=== PATIENT | male | born 1955 | race Hispanic/Latino ===

== ENCOUNTER 2019-01-02 23:56 | Emergency (ER) | payer OTHER ==
[~2019-01-02] VITALS: Ht 165.1 cm; Wt 61.2 kg
--- NOTE | 2019-01-03 | NUR ---
PT INCONTINENT OF URINE PRIOR TO ARRIVAL, PANTS WET WITH URINE FROM GROIN TO FEET. DISROBED AND CHANGED TO GOWN ON ARRIVAL
[2019-01-03] MEDS ORDERED: LORAZEPAM INJ 2 MG/ML VIAL ONE (00:08)
[2019-01-03] MEDS ORDERED: SODIUM CHLORIDE 0.9% 1000ML 1,000 ML ONE (00:09)
[2019-01-03] MEDS ORDERED: MULTIVITAMINS INJECTION ONE (00:12)
[2019-01-03] MEDS ORDERED: THIAMINE HCL INJ 100 MG/ML 2ML VIAL ONE (00:12)
[2019-01-03] MEDS ORDERED: FOLIC ACID 5 MG/ML VIAL ONE (00:12)
[2019-01-03] MEDS ORDERED: MULTIVITAMINS- 12 INJECTION 10 ML, FOLIC ACID MDV 1 MG, THIAMINE HCL INJ 100 MG in SODI... IV STA (00:20)
[2019-01-03 00:21] LABS: BASOPHILS % 0.2 % (0.0-1.0); EOSINOPHILS # (AUTO) 0.1 (0.0-0.4); EOSINOPHILS % 1.9 % (0.0-6.0); HEMATOCRIT 39.5 % (38.2-49.6); LYMPHOCYTES % 15.7 % (18.0-39.1); MEAN CORPUSCULAR HEMOGLOBIN 33.6 pg (28-32); MEAN CORPUSCULAR HGB CONC 35.4 g/dL (31-35); MEAN CORPUSCULAR VOLUME 94.7 fL (81-99); MONOCYTES # (AUTO) 1.2 (0.2-0.8); MONOCYTES % 18.9 % (4.4-11.3); NEUTROPHILS % 62.7 % (38.7-80.0); PLATELET COUNT 158 x10e3/uL (140-360); RED BLOOD COUNT 4.17 x10e6/uL (4.3-5.7); RED CELL DISTRIBUTION WIDTH 12.1 % (11.7-14.4)
[2019-01-03 00:27] LABS: INR 1.08; PROTHROMBIN TIME 14.5 seconds (11.9-14.5)
[2019-01-03 00:28] LABS: PARTIAL THROMBOPLASTIN TIME 26.8 seconds (23.8-35.5)
[2019-01-03] MEDS ORDERED: LORAZEPAM INJ 2 MG/ML VIAL IV ONE (00:30)
[2019-01-03 00:35] LABS: ALANINE AMINOTRANSFERASE 34 IU/L (0-55); ALBUMIN 4.3 g/dL (3.5-5.0); ALBUMIN/GLOBULIN RATIO 1.2 (0.8-2.0); ALKALINE PHOSPHATASE 66 IU/L (40-150); ANION GAP 22.7 mmol/L (8-16); BLOOD UREA NITROGEN 7 mg/dL (7-26); BUN/CREATININE RATIO 10 (6-25); CALCIUM 10.2 mg/dL (8.4-10.2); CARBON DIOXIDE 26 mmol/L (22-29); CHLORIDE 91 mmol/L (98-107); CREATININE, SERUM 0.73 mg/dL (0.72-1.25); EST GLOMERULAR FILTRATION RATE > 60 ML/MIN (60-); GLUCOSE 164 mg/dL (74-118); MAGNESIUM 1.9 MG/DL (1.3-2.1); SODIUM 137 mmol/L (136-145)
[2019-01-03 00:46] LABS: POTASSIUM 2.7 mmol/L (3.5-5.1)
[2019-01-03] MEDS ORDERED: POTASSIUM CHLORIDE 10MEQ/100ML 100 ML ONE (00:53)
[2019-01-03] MEDS ORDERED: ONDANSETRON HCL INJ 2MG/ML 2ML 2 MG/ML VIAL IV STA (00:59)
[2019-01-03] MEDS ORDERED: SODIUM CHLORIDE 0.9% 1000ML 1,000 ML IV STA (00:59)
[2019-01-03] MEDS ORDERED: POTASSIUM CHLORIDE 20 MEQ TAB CR PO STA (00:59)
[2019-01-03] MEDS ORDERED: POTASSIUM CHLORIDE 10MEQ/100ML 100 ML IV ONE (01:00)
[2019-01-03] MEDS ORDERED: POTASSIUM CHLORIDE 20MEQ/100ML 100 ML IV ONE (01:00)
[2019-01-03] MEDS ORDERED: IOPAMIDOL 370 MG/ML 200 ML INFUS..BTL INJ ONE (01:13)
[2019-01-03] MEDS ORDERED: SODIUM CHLORIDE 0.9% 50ML 50 ML ONE (01:13)
[2019-01-03] MEDS ORDERED: KCL 20MEQ/.9 SOD CHL 1,000 ML IV ONE (01:15)
[2019-01-03] MEDS ORDERED: POTASSIUM CHLORIDE 20MEQ/15ML UDC ONE (02:24)
--- NOTE | 2019-01-03 03:11 | Diagnostic Imaging Report ---
EXAM: CT Abdomen and Pelvis WITH contrast INDICATION: ^vomiting ^[id number] ^0220 COMPARISON: None. TECHNIQUE: Abdomen and pelvis were scanned utilizing a multidetector helical scanner from the lung base to the pubic symphysis after administration of IV contrast. Coronal and sagittal reformations were obtained. Dose modulation, iterative reconstruction, and/or weight based adjustment of the mA/kV was utilized to reduce the radiation dose to as low as reasonably achievable. Routine protocol was performed. Scan was performed when during portal venous phase. IV CONTRAST: 100 mL of Isovue-300 ORAL CONTRAST: None. COMPLICATIONS: None RADIATION DOSE: Total DLP: 261.44 mGy*cm Estimated effective dose: (DLP x 0.015 x size factor) mSv CTDIvol has been reviewed. It is below the limits set by the Radiation Protocol Committee (RPC). FINDINGS: LINES and TUBES: None. LOWER THORAX: 4 mm left lower lobe nodule. HEPATOBILIARY: Hepatic steatosis. No focal hepatic lesions. Subcentimeter segment 4 calcified granuloma. No biliary ductal dilation. GALLBLADDER: No radio-opaque stones or sludge. No wall thickening. SPLEEN: No splenomegaly. PANCREAS: No focal masses or ductal dilatation. ADRENALS: No adrenal nodules KIDNEYS/URETERS: Kidneys enhance symmetrically. No hydronephrosis. No cystic or solid mass lesions. No stones. GI TRACT: No abnormal distention or evidence of bowel obstruction. Mild rectosigmoid wall thickening. There are few diverticula within the colon without evidence of diverticulitis. Appendix is not visualized. Small hiatal hernia. PELVIC ORGANS/BLADDER: Prominent prostate gland. Bladder is under distended, demonstrating wall thickening. LYMPH NODES: No lymphadenopathy. VESSELS: Unremarkable. PERITONEUM / RETROPERITONEUM: No free air or fluid. BONES: Bilateral L5 pars defects with grade 1 anterolisthesis of L5 in relation to L4 and S1. SOFT TISSUES: Unremarkable. IMPRESSION: 1. Mild rectosigmoid wall thickening, could be due to underdistention or infectious/inflammatory colitis in the appropriate clinical context. 2. Otherwise, no acute inflammatory process in the abdomen/pelvis. 3. 4 mm left lower lobe lung nodule. Without risk factors, no follow-up is necessary. With risk factors, follow-up with low-dose chest CT in one year is optional. 4. Hepatic steatosis. 5. Small hiatal hernia. Signed by: Dr. Tom Villanueva MD on 01/03/2019 3:08 AM
[2019-01-03] MEDS ORDERED: METRONIDAZOLE 500MG/NS 100ML 100 ML IV STA (03:17)
[2019-01-03] MEDS ORDERED: CIPROFLOXACIN 400 MG/D5W 200ML 200 ML IV STA (03:17)
--- NOTE | 2019-01-03 04:47 | NUR ---
ns with 20KCL infused. saline locked IV. pt resting with eyes closed, easily aroused, skin w/d resp nonlab, nad noted. pt states he feels better but still feels weak. will redraw blood at 0515
[2019-01-03 05:55] LABS: BILIRUBIN,URINE NEGATIVE (NEGATIVE); CLARITY,URINE SL CLOUDY (CLEAR); COLOR,URINE YELLOW (YELLOW); KETONES,URINE 1+ (NEGATIVE); LEUKOCYTE ESTERASE ,URINE NEGATIVE (NEGATIVE); NITRITE,URINE NEGATIVE (NEGATIVE); PROTEIN,URINE DIPSTICK NEGATIVE (NEGATIVE); URINE UROBILINOGEN 1 mg/dL (0.2 - 1)
[2019-01-03 06:04] LABS: ANION GAP 12.3 mmol/L (8-16); BLOOD UREA NITROGEN 5 mg/dL (7-26); BUN/CREATININE RATIO 9 (6-25); CALCIUM 7.3 mg/dL (8.4-10.2); CARBON DIOXIDE 22 mmol/L (22-29); CHLORIDE 103 mmol/L (98-107); CREATININE, SERUM 0.57 mg/dL (0.72-1.25); EST GLOMERULAR FILTRATION RATE > 60 ML/MIN (60-); GLUCOSE 90 mg/dL (74-118); POTASSIUM 4.3 mmol/L (3.5-5.1); SODIUM 133 mmol/L (136-145)
[2019-01-03 06:13] LABS: BACTERIA,URINE RARE /HPF; EPITHELIAL CELLS,URINE RARE /LPF; WBC,URINE (MAN) 0-5 /HPF (0-5)
[2019-01-03] MEDS ORDERED: CIPRO500 MG PO (06:14)
[2019-01-03] MEDS ORDERED: FLAGYL500 MG PO (06:14)
== END 2019-01-03 06:45 | disposition home or self-care (01) ==
LOC: ER 23:56
DX: R11.2 Nausea with vomiting, unspecified (principal); R19.7 Diarrhea, unspecified; K29.20 Alcoholic gastritis without bleeding; K52.9 Noninfective gastroenteritis and colitis, unspecified; E87.6 Hypokalemia; F17.210 Nicotine dependence, cigarettes, uncomplicated
CPT/HCPCS: 36415; 74177; 80048; 80053; 80320; 81001; 82140; 83605; 83690; 83735; 85025; 85610; 85730; 87040; 99284; J2060; J2405; J3411; J3480; J7030; Q9967

== ENCOUNTER 2019-02-26 17:58 | Inpatient (IN) | payer OTHER ==
[~2019-02-26] VITALS: Ht 165.1 cm; Wt 54.5 kg
[~2019-02-26 17:58] MED LIST: CIPRO500 MG PO; FLAGYL500 MG PO
--- OUTSIDE RECORDS SUMMARY | 2019-02-26 18:01 | XMS REPORT ---
Author Author [facility] Address Unknown Phone Unavailable Care Team Providers Care Wrap Turner Name Role Phone Manuel JOHNSON Unavailable Unavailable Problems This patient has no known problems. Allergies, Adverse Reactions, Alerts This patient has no known allergies or adverse reactions. Medications This patient has no known medications. Results Test Description Test Time Test Comments Text Results Atomic Results Result Comments CT ABDOMEN/PELVIS W 2019-01-03 02:30:00 [facility] [address] [address] Patient Name: DIPIKA PERDUE MR #: [id number] : 1955 Age/Sex: 63/M Req #: [id number] Adm Physician: Ordered by: CHRIS JOHNSON MD Report #: [id number] Location: ER Room/Bed: Procedure: [id number] CT/CT ABDOMEN/PELVIS W Exam Date: 01/03/19 Exam Time: 219 REPORT STATUS: Signed EXAM: CT Abdomen and Pelvis WITH contrast INDICAT ION: vomiting [id number] COMPARISON: None. TECHNIQUE: Abdomen and pelvis were scanned utilizing a multidetector helical scanner from the lung base to the pubic symphysis after administration of IV contrast. Coronal and sagittal reformations were obtained. Dose modulation, iterative reconstruction, and/or weight based adjustment of the mA/kV was utilized to reduce the radiation dose to as low as reasonably achievable. Routine protocol was performed. Scan was performed when during portal venous phase. IV CONTRAST: 100 mL of Isovue-300 ORAL CONTRAST: None. COMPLICATIONS: None RADIATION DOSE: Total DLP: 261.44 mGy*cm Estimated effective dose: (DLP x 0.015 x size factor) mSv CTDIvol has been reviewed. It is below the limits set by the Radiation Protocol Committee (RPC). FINDINGS: LINES and TUBES: None. LOWER THORAX: 4 mm left lower lobe nodule. HEPATOBILIARY: Hepatic steatosis. No focal hepatic lesions. Subcentimeter segment 4 calcified granuloma. No biliary ductal dilation. GALLBLADDER: No radio-opaque stones or sludge. No wall thickening. SPLEEN: No splenomegaly. PANCREAS: No focal masses or ductal dilatation. ADRENALS: No adrenal nodules KIDNEYS/URETERS: Kidneys enhance symmetrically. No hydronephrosis. No cystic or solid mass lesions. No stones. GI TRACT: No abnormal distention or evidence of bowel obstruction. Mild rectosigmoid wall thickening. There are few diverticula within the colon without evidence of diverticulitis. Appendix is not visualized. Small hiatal hernia. PELVIC ORGANS/BLADDER: Prominent prostate gland. Bladder is under distended, demonstrating wall thickening. LYMPH NODES: No lymphadenopathy. VESSELS: Unremarkable. PERITONEUM / RETROPERITONEUM: No free air or fluid. BONES: Bilateral L5 pars defects with grade 1 anterolisthesis of L5 in relation to L4 and S1. SOFT TISS UES: Unremarkable. IMPRESSION: 1. Mild rectosigmoid wall thickening, could be due to underdistention or infectious/inflammatory colitis in the appropriate clinical context. 2. Otherwise, no acute inflammatory process in the abdomen/pelvis. 3. 4 mm left lower lobe lung nodule. Without risk factors, no follow-up is necessary. With risk factors, follow-up with low-dose chest CT in one year is optional. 4. Hepatic steatosis. 5. Small hiatal hernia. Signed by: Dr. Tom Laguna MD on 01/03/2019 3:08 AM Dictated By: TOM LAGUNA MD 7 Transcribed By: DG on 01/03/19307 COPY TO: CHRIS JOHNSON MD
[2019-02-26] MEDS ORDERED: SODIUM CHLORIDE 0.9% 1000ML 1,000 ML ONE (18:07)
[2019-02-26 18:12] LABS: BASOPHILS % 0.1 % (0.0-1.0); EOSINOPHILS % 0.1 % (0.0-6.0); HEMATOCRIT 45.6 % (38.2-49.6); HEMOGLOBIN 15.5 g/dL (14.0-18.0); LYMPHOCYTES # (AUTO) 0.8 (1.0-3.2); LYMPHOCYTES % 9.3 % (18.0-39.1); MEAN CORPUSCULAR HEMOGLOBIN 34.1 pg (28-32); MEAN CORPUSCULAR VOLUME 100.2 fL (81-99); MONOCYTES # (AUTO) 0.8 (0.2-0.8); NEUTROPHILS # (AUTO) 7.1 (2.1-6.9); NEUTROPHILS % 80.5 % (38.7-80.0); PLATELET COUNT 196 x10e3/uL (140-360); RED BLOOD COUNT 4.55 x10e6/uL (4.3-5.7); RED CELL DISTRIBUTION WIDTH 12.1 % (11.7-14.4)
[2019-02-26 18:24] LABS: INR 1.14; PROTHROMBIN TIME 15.2 seconds (11.9-14.5)
[2019-02-26 18:25] LABS: PARTIAL THROMBOPLASTIN TIME 28.4 seconds (23.8-35.5)
[2019-02-26 18:26] LABS: ACETAMINOPHEN < 3 ug/mL (10-30); SALICYLATE < 5.0 mg/dL (0-30)
[2019-02-26 18:28] LABS: ALANINE AMINOTRANSFERASE 41 IU/L (0-55); ALBUMIN 4.8 g/dL (3.5-5.0); ALBUMIN/GLOBULIN RATIO 1.1 (0.8-2.0); ALKALINE PHOSPHATASE 81 IU/L (40-150); ANION GAP 40.8 mmol/L (8-16); BLOOD UREA NITROGEN 5 mg/dL (7-26); BUN/CREATININE RATIO 5 (6-25); CALCIUM 10.6 mg/dL (8.4-10.2); CARBON DIOXIDE 14 mmol/L (22-29); CHLORIDE 88 mmol/L (98-107); CREATINE KINASE 163 IU/L (30-200); CREATININE, SERUM 1.02 mg/dL (0.72-1.25); EST GLOMERULAR FILTRATION RATE > 60 ML/MIN (60-); GLUCOSE 131 mg/dL (74-118); SODIUM 140 mmol/L (136-145)
[2019-02-26] MEDS ORDERED: POTASSIUM CHLORIDE 10MEQ/100ML 300 ML IV ONE (18:30)
[2019-02-26] MEDS ORDERED: SODIUM CHLORIDE 0.9% 1000ML 1,000 ML IV STA (18:34)
[2019-02-26 18:37] LABS: B-TYPE NATRIURETIC PEPTIDE2 129.2 pg/mL (0-100)
[2019-02-26] MEDS ORDERED: SODIUM CHLORIDE 0.9% 1000ML 2,000 ML ONE (18:38)
--- NOTE | 2019-02-26 18:39 | NUR ---
2ND LITER OF N.S. INFUSING
[2019-02-26] MEDS ORDERED: CEFTRIAXONE SOD 1 GM/NS 50 ML 50 ML IV ONE (18:45)
[2019-02-26] MEDS ORDERED: CEFTRIAXONE SOD 1 GM VIAL IV SCH (18:45)
--- NOTE | 2019-02-26 18:55 | NUR ---
sister at bedside and is complaining about the iv placement and that she had the same problem with the nurses when her father was here.
--- NOTE | 2019-02-26 19:34 | Diagnostic Imaging Report ---
EXAMINATION: Head CT without contrast. HISTORY:Altered mental status. COMPARISON:None. TECHNIQUE: Multidetector axial images were obtained from the foramen magnum to the vertex without contrast. The images were reconstructed using brain and bone algorithms. Thin section brain images were reformatted into coronal and sagittal planes. Dose modulation, iterative reconstruction, and/or weight based adjustment of the mA/kV was utilized to reduce the radiation dose to as low as reasonably achievable. Intravenous contrast: None IMAGE QUALITY: Suboptimal evaluation due to motion artifact particularly at the level of skull base and posterior fossa. FINDINGS: Skull/scalp: No lytic or blastic. lesions. No surgical changes. Parenchyma: Nonspecific few, scattered supratentorial white matter hypodensity are likely related to small vessel ischemic changes. No acute hemorrhage, mass or acute major vascular territorial infarct. Arteries: No density suggestive of thrombosis. Dural sinuses: No abnormal density suggestive of thrombosis. Ventricles: Mild compensated dilatation due to volume loss. No acute hydrocephalus. Extra-axial spaces: No abnormal density. Brain volume: Mild generalized cerebral volume loss. Craniocervical junction: No mass, Chiari malformation, or basilar invagination. Sella: No mass. Paranasal/mastoid sinuses: Mild mucosal thickening in right maxillary and anterior ethmoid sinuses. IMPRESSION: 1. Suboptimal evaluation due to motion artifacts, despite the limitation no gross acute intracranial abnormality. 2. Mild supratentorial white matter microvascular ischemic changes. 3. Mild generalized cerebral volume loss. Signed by: Dr. Laura aLrry M.D. on 02/26/2019 7:30 PM
[2019-02-26] MEDS ORDERED: ONDANSETRON HCL INJ 2MG/ML 2ML 2 MG/ML VIAL ONE (19:35)
--- NOTE | 2019-02-26 19:48 | Diagnostic Imaging Report ---
EXAMINATION: CHEST SINGLE (PORTABLE) INDICATION: Altered mental status. Pain. Vomiting. COMPARISON: None FINDINGS: TUBES and LINES: None. LUNGS: Lungs are well inflated. Lungs are clear. There is no evidence of pneumonia or pulmonary edema. PLEURA: No pleural effusion or pneumothorax. HEART AND MEDIASTINUM: The cardiomediastinal silhouette is unremarkable. BONES AND SOFT TISSUES: No acute osseous lesion. Soft tissues are unremarkable. UPPER ABDOMEN: No free air under the diaphragm. IMPRESSION: No acute thoracic abnormality. Signed by: Dr. Tino Foster M.D. on 02/26/2019 7:45 PM
[2019-02-26 19:55] LABS: BILIRUBIN,URINE NEGATIVE (NEGATIVE); CLARITY,URINE SL CLOUDY (CLEAR); COLOR,URINE YELLOW (YELLOW); KETONES,URINE 1+ (NEGATIVE); LEUKOCYTE ESTERASE ,URINE NEGATIVE (NEGATIVE); NITRITE,URINE NEGATIVE (NEGATIVE); PROTEIN,URINE DIPSTICK TRACE (NEGATIVE); URINE UROBILINOGEN 0.2 mg/dL (0.2 - 1)
--- NOTE | 2019-02-26 19:55 | Diagnostic Imaging Report ---
EXAM: CT Abdomen and Pelvis WITH contrast INDICATION: Abdominal pain, nausea and vomiting. Diarrhea. COMPARISON: 01/03/2019. TECHNIQUE: Abdomen and pelvis were scanned utilizing a multidetector helical scanner from the lung base to the pubic symphysis after administration of IV contrast. Coronal and sagittal reformations were obtained. Routine protocol was performed. Scan was performed when during portal venous phase. IV CONTRAST: 150 mL of Omnipaque 300 ORAL CONTRAST: Water RADIATION DOSE: Total DLP: 268.47 mGy*cm Estimated effective dose: (DLP x 0.015 x size factor) mSv COMPLICATIONS: None FINDINGS: LINES and TUBES: None. LOWER THORAX: Small hiatal hernia with thickening of the distal esophagus. Stable 4 mm noncalcified nodule in the posterolateral left lung base on image 4 series 2. HEPATOBILIARY: The liver is diffuse hypodense compared to the spleen, consistent with diffuse hepatic diffuse hepatic steatosis. No focal hepatic lesions. No biliary ductal dilation. GALLBLADDER: No radio-opaque stones or sludge. No wall thickening. SPLEEN: No splenomegaly. PANCREAS: No focal masses or ductal dilatation. ADRENALS: No adrenal nodules KIDNEYS/URETERS: Kidneys enhance symmetrically. No hydronephrosis. No cystic or solid mass lesions. No stones. GI TRACT: No abnormal distention, wall thickening, or evidence of bowel obstruction. Appendix is normal. PELVIC ORGANS/BLADDER: Unremarkable. LYMPH NODES: No lymphadenopathy. VESSELS: Unremarkable. PERITONEUM / RETROPERITONEUM: No free air or fluid. BONES: Bilateral L5 pars defects with grade 1 anterolisthesis of L5 in relation to L4 and S1. SOFT TISSUES: Unremarkable. IMPRESSION: 1. No acute abdominal pelvic abnormality. 2. Small hiatal hernia. Signed by: Dr. Tino Foster M.D. on 02/26/2019 7:52 PM
[2019-02-26] MEDS ORDERED: ONDANSETRON HCL INJ 2MG/ML 2ML 2 MG/ML VIAL IV STA (19:56)
[2019-02-26 19:57] LABS: AMPHETAMINES SCREEN,URINE NEGATIVE (NEGATIVE); BENZODIAZEPINES SCREEN,URINE NEGATIVE (NEGATIVE); PHENCYCLIDINE SCREEN,URINE NEGATIVE (NEGATIVE)
[2019-02-26] MEDS ORDERED: ONDANSETRON HCL INJ 2MG/ML 2ML 2 MG/ML VIAL IV ONE (20:00)
[2019-02-26 20:10] LABS: EPITHELIAL CELLS,URINE FEW /LPF; WBC,URINE (MAN) 0-5 /HPF (0-5)
[2019-02-26] MEDS ORDERED: ACETAMINOPHEN 1000 MG/100 ML IV ONE (20:13)
[2019-02-26] MEDS ORDERED: ONDANSETRON HCL INJ 2MG/ML 2ML 2 MG/ML VIAL IV PRN (20:30)
[2019-02-26] MEDS ORDERED: ACETAMINOPHEN 1000 MG/100 ML IV PRN (20:30)
[2019-02-26] MEDS ORDERED: ACETAMINOPHEN 1000 MG/100 ML 100 ML IV PRN (20:30)
[2019-02-26] MEDS: METRONIDAZOLE 500MG/NS 100ML 100 ML IV SCH (20:39)
[2019-02-26] MEDS: VANCOMYCIN 1GM/NS 250 ML 250 ML IV SCH (20:40)
[2019-02-26] MEDS ORDERED: PROMETHAZINE HCL (IM) 25 MG/ML VIAL IM ONE (20:45)
[2019-02-26 21:30] VITALS: BP 138/91
--- NOTE | 2019-02-26 21:30 | NUR ---
RECEIVED FROM ER PER STRETCHER, OPENS EYES TO VOICE, OBEYS COMMANDS. ORIENTED TO PERSON AND PLACE. NO SKIN BREAKDOWN NOTED
[2019-02-26 22:00] VITALS: BP 110/70
[2019-02-26] MEDS: SODIUM CHLORIDE 0.9% 1000ML 1,000 ML IV SCH (22:10)
[2019-02-26 22:19] VITALS: BP 110/70
[2019-02-26] MEDS ORDERED: IOPAMIDOL 370 MG/ML 200 ML INFUS..BTL INJ ONE (22:49)
[2019-02-26] MEDS ORDERED: SODIUM CHLORIDE 0.9% 50ML 50 ML ONE (22:49)
[2019-02-26 23:00] VITALS: BP 137/79
[2019-02-27] VITALS (19 sets, daily range): BP systolic 100–139; BP diastolic 58–77
--- NOTE | 2019-02-27 00:44 | NUR ---
MUCH MORE ALERT AT THIS TIME, KNOWS HE IS IN THE HOSPITAL AND KNOWS THAT HIS SISTER TOOK HIS BELONGINGS HOME WITH HIM. ANSWERES QUESTIONS APPROPRIATELY AND FOLLOWS COMMANDS. AMBULATED TO BATHROOM WITH CONTACT GUARD, NO BOWEL MOVEMENT NOTED, HAD BEEN INCONTINENT OF URINE, NEHEMIAS-CARE PROVIDED AND DIAPER CHANGED. HR ELEVATED TO 119 DURING AMBULATION NO SOB OR DESATURATION NOTED DURING AMBULATION.
[2019-02-27] MEDS: METRONIDAZOLE 500MG/NS 100ML 100 ML IV SCH ×3 (03:00→16:35)
[2019-02-27] MEDS: SODIUM CHLORIDE 0.9% 1000ML 1,000 ML IV SCH ×3 (03:35→16:07)
--- NOTE | 2019-02-27 05:05 | NUR ---
IV TO RIGHT FA LEAKING, SITE DISCONTINUED AND ALL FLUIDS MOVED TO LEFT AC
[2019-02-27 05:14] LABS: EOSINOPHILS # (AUTO) 0.1 (0.0-0.4); EOSINOPHILS % 1.7 % (0.0-6.0); HEMATOCRIT 34.8 % (38.2-49.6); HEMOGLOBIN 12.1 g/dL (14.0-18.0); LYMPHOCYTES # (AUTO) 0.3 (1.0-3.2); LYMPHOCYTES % 4.1 % (18.0-39.1); MEAN CORPUSCULAR HEMOGLOBIN 33.8 pg (28-32); MEAN CORPUSCULAR HGB CONC 34.8 g/dL (31-35); MEAN CORPUSCULAR VOLUME 97.2 fL (81-99); MONOCYTES # (AUTO) 0.8 (0.2-0.8); MONOCYTES % 10.1 % (4.4-11.3); NEUTROPHILS # (AUTO) 6.5 (2.1-6.9); NEUTROPHILS % 83.6 % (38.7-80.0); PLATELET COUNT 129 x10e3/uL (140-360); RED BLOOD COUNT 3.58 x10e6/uL (4.3-5.7); RED CELL DISTRIBUTION WIDTH 12.2 % (11.7-14.4)
[2019-02-27 05:38] LABS: ALANINE AMINOTRANSFERASE 39 IU/L (0-55); ALBUMIN 3.4 g/dL (3.5-5.0); ALBUMIN/GLOBULIN RATIO 1.2 (0.8-2.0); ALKALINE PHOSPHATASE 55 IU/L (40-150); ANION GAP 17.3 mmol/L (8-16); BLOOD UREA NITROGEN 5 mg/dL (7-26); BUN/CREATININE RATIO 8 (6-25); CALCIUM 8.2 mg/dL (8.4-10.2); CARBON DIOXIDE 26 mmol/L (22-29); CHLORIDE 101 mmol/L (98-107); EST GLOMERULAR FILTRATION RATE > 60 ML/MIN (60-); GLUCOSE 98 mg/dL (74-118); POTASSIUM 3.3 mmol/L (3.5-5.1); SODIUM 141 mmol/L (136-145)
--- NOTE | 2019-02-27 06:07 | NUR ---
INCONTINENT OF URINE, NEHEMIAS CARE PROVIDED AND DIAPER CHANGED
--- NOTE | 2019-02-27 06:33 | NUR ---
AMBULATED TO BATHROOM, NO BM, VOIDED IN TOILET
[2019-02-27] MEDS: VANCOMYCIN 1GM/NS 250 ML 250 ML IV SCH (08:45)
[2019-02-27] MEDS ORDERED: METRONIDAZOLE 500MG/NS 100ML 100 ML IV SCH ×2 (09:00→14:00)
[2019-02-27] MEDS ORDERED: POTASSIUM CHLORIDE 20 MEQ TAB CR PO ONE (12:30)
[2019-02-27] MEDS ORDERED: HYDRALAZINE HCL 20 MG/ML VIAL IV PRN (12:30)
[2019-02-27] MEDS: CIPROFLOXACIN 200 MG/D5W 100ML 100 ML IV SCH (13:04)
[2019-02-27] MEDS: FAMOTIDINE 20 MG TAB PO SCH (16:35)
--- NOTE | 2019-02-27 17:02 | NUR ---
consult called to Dr. Alvarez, no new orders
--- NOTE | 2019-02-27 18:16 | NUR ---
patients sister in room with patient and was assisting patient to RR, when patient noted to have disconnected himself from IV fluids, and PIV found attached to IV tubing patient and sister unaware that IV was pulled out
[2019-02-28] MEDS: CIPROFLOXACIN 200 MG/D5W 100ML 100 ML IV SCH ×2 (00:02→13:35)
[2019-02-28] MEDS: METRONIDAZOLE 500MG/NS 100ML 100 ML IV SCH ×3 (01:40→16:58)
[2019-02-28 03:37] VITALS: BP 101/47
[2019-02-28 04:02] LABS: BASOPHILS % 0.2 % (0.0-1.0); HEMATOCRIT 33.9 % (38.2-49.6); HEMOGLOBIN 11.6 g/dL (14.0-18.0); LYMPHOCYTES # (AUTO) 0.7 (1.0-3.2); LYMPHOCYTES % 11.9 % (18.0-39.1); MEAN CORPUSCULAR HEMOGLOBIN 33.5 pg (28-32); MEAN CORPUSCULAR HGB CONC 34.2 g/dL (31-35); MONOCYTES # (AUTO) 0.8 (0.2-0.8); MONOCYTES % 14.2 % (4.4-11.3); NEUTROPHILS # (AUTO) 4.1 (2.1-6.9); NEUTROPHILS % 73.2 % (38.7-80.0); PLATELET COUNT 120 x10e3/uL (140-360); RED BLOOD COUNT 3.46 x10e6/uL (4.3-5.7); RED CELL DISTRIBUTION WIDTH 12.3 % (11.7-14.4)
[2019-02-28 04:22] LABS: ALANINE AMINOTRANSFERASE 31 IU/L (0-55); ALBUMIN 3.1 g/dL (3.5-5.0); ALKALINE PHOSPHATASE 44 IU/L (40-150); ANION GAP 16.7 mmol/L (8-16); BILIRUBIN,DIRECT 0.6 mg/dL (0.0-0.5); BLOOD UREA NITROGEN 7 mg/dL (7-26); BUN/CREATININE RATIO 12 (6-25); CALCIUM 7.9 mg/dL (8.4-10.2); CARBON DIOXIDE 25 mmol/L (22-29); CHLORIDE 97 mmol/L (98-107); CREATININE, SERUM 0.59 mg/dL (0.72-1.25); EST GLOMERULAR FILTRATION RATE > 60 ML/MIN (60-); GLUCOSE 71 mg/dL (74-118); SODIUM 136 mmol/L (136-145)
[2019-02-28 04:24] LABS: POTASSIUM 2.7 mmol/L (3.5-5.1)
[2019-02-28] MEDS ORDERED: POTASSIUM CHLORIDE 20 MEQ TAB CR PO STA (04:45)
--- NOTE | 2019-02-28 04:45 | NUR ---
Giuliana Kolb TOYS INSPECTOR notified of critical potassium level 2.7 New orders received.
--- NOTE | 2019-02-28 08:09 | NUR ---
Dr Beltran Alvarez to bedside.
[2019-02-28] MEDS ORDERED: ACETAMINOPHEN 325 MG TAB PO PRN (08:45)
[2019-02-28] MEDS ORDERED: POTASSIUM CHLORIDE 20 MEQ TAB CR PO SCH (09:00)
--- NOTE | 2019-02-28 09:08 | NUR ---
Consult called to Dr Tamar Camejo.
[2019-02-28] MEDS: FAMOTIDINE 20 MG TAB PO SCH ×2 (09:48→15:51)
[2019-02-28 09:54] VITALS: BP 123/89
--- NOTE | 2019-02-28 14:23 | Consultation ---
DATE OF CONSULTATION: 02/28/2019 Pulmonary Critical Care Consultation CHIEF COMPLAINT: Elevated lactic acid, vomiting, and hypokalemia. HISTORY OF PRESENT ILLNESS: The patient is a 63-year-old man. He has cerebral palsy. He came to the ER yesterday complaining of vomiting. They also reported hematemesis. The sister complained about some altered mental status. He has now received IV fluids along with antiemetics. He feels better. He denies abdominal pain. His potassium was low and is currently being repleted. PAST MEDICAL HISTORY: 1. Cerebral palsy. 2. The patient denies any prior history of GI problems. PAST SURGICAL HISTORY: No prior surgical history. SOCIAL HISTORY: The patient is not actively smoking or drinking. REVIEW OF SYSTEMS: There is no headache. He has no neck pain. He is not having any or chest pain. He has no dyspnea. He has no abdominal pain. He has some diarrhea. He is not having nausea or vomiting. He has no leg edema. PHYSICAL EXAMINATION: VITAL SIGNS: The patient is afebrile. The blood pressure is 101/47 and the saturation is 99%. HEENT: Shows no facial swelling or erythema. The oropharynx is normal. LYMPHATIC: Shows no submandibular, cervical, or supraclavicular adenopathy. CARDIAC: Reveals a regular rate and rhythm with normal S1 and S2. LUNGS: Auscultation of lungs shows clear breath sounds bilaterally. There is no wheezing. ABDOMEN: Soft and nontender. There is no rebound or guarding. EXTREMITIES: Shows no leg edema or calf tenderness. There is no cyanosis or clubbing. SKIN: Shows no rashes. NEUROLOGICAL: Shows no focal abnormalities. LABORATORY DATA: The potassium is 2.7. Other electrolytes are within normal limits. The LFTs are normal. The albumin is 3.1. The initial lactic acid was 216, but repeat was 7.3. White blood cell count is 5.5 and hemoglobin is 11.6. The platelet count is 120. RADIOGRAPHIC DATA: CT scan of the abdomen and pelvis shows no acute abnormalities. There is a small hiatal hernia. IMPRESSION: 1. Nausea and vomiting with hematemesis. 2. Diarrhea. 3. Persistent hypokalemia. 4. Thrombocytopenia. 5. Cerebral palsy. PLAN: 1. Continue IV hydration. 2. Replete potassium. 3. Continue Pepcid. 4. GI consultation. 5. Monitor platelet counts. MD ANTHONY Barbosa/RAMESH /[id number]
[2019-02-28 15:29] VITALS: BP 137/73
[2019-02-28 18:45] VITALS: BP 137/73
[2019-02-28 19:00] VITALS: BP 139/90
[2019-02-28 23:59] VITALS: BP 131/78
[2019-03-01] MEDS: CIPROFLOXACIN 200 MG/D5W 100ML 100 ML IV SCH ×3 (00:34→22:25)
[2019-03-01] MEDS: METRONIDAZOLE 500MG/NS 100ML 100 ML IV SCH ×3 (01:06→17:59)
[2019-03-01 03:00] VITALS: BP 131/92
[2019-03-01] MEDS ORDERED: PANTOPRAZOLE 40 MG 10ML VIAL IV STA (03:14)
--- NOTE | 2019-03-01 03:15 | NUR ---
Dr. Messi Camejo rounding, wants consent obtained for EGD. New orders noted.
[2019-03-01 04:45] LABS: BASOPHILS % 0.2 % (0.0-1.0); EOSINOPHILS % 0.7 % (0.0-6.0); HEMATOCRIT 34.4 % (38.2-49.6); HEMOGLOBIN 12.1 g/dL (14.0-18.0); LYMPHOCYTES # (AUTO) 0.8 (1.0-3.2); MEAN CORPUSCULAR HEMOGLOBIN 33.8 pg (28-32); MEAN CORPUSCULAR HGB CONC 35.2 g/dL (31-35); MEAN CORPUSCULAR VOLUME 96.1 fL (81-99); MONOCYTES # (AUTO) 0.7 (0.2-0.8); MONOCYTES % 16.1 % (4.4-11.3); NEUTROPHILS # (AUTO) 2.9 (2.1-6.9); NEUTROPHILS % 65.8 % (38.7-80.0); PLATELET COUNT 123 x10e3/uL (140-360); RED BLOOD COUNT 3.58 x10e6/uL (4.3-5.7); RED CELL DISTRIBUTION WIDTH 11.9 % (11.7-14.4)
[2019-03-01 05:10] LABS: ALANINE AMINOTRANSFERASE 33 IU/L (0-55); ALBUMIN 3.2 g/dL (3.5-5.0); ALBUMIN/GLOBULIN RATIO 1.2 (0.8-2.0); ALKALINE PHOSPHATASE 44 IU/L (40-150); ANION GAP 15.5 mmol/L (8-16); BLOOD UREA NITROGEN < 5 mg/dL (7-26); CALCIUM 7.9 mg/dL (8.4-10.2); CARBON DIOXIDE 30 mmol/L (22-29); CHLORIDE 93 mmol/L (98-107); CREATININE, SERUM 0.58 mg/dL (0.72-1.25); EST GLOMERULAR FILTRATION RATE > 60 ML/MIN (60-); GLUCOSE 87 mg/dL (74-118); SODIUM 136 mmol/L (136-145)
[2019-03-01 05:24] LABS: BUN/CREATININE RATIO 9 (6-25); POTASSIUM 2.5 mmol/L (3.5-5.1)
--- NOTE | 2019-03-01 05:27 | NUR ---
Dr. Alberts's LANGUAGES AND LITERATURE INSTRUCTOR Chance, notified of critical potassium. New orders noted. See eMAR
[2019-03-01] MEDS ORDERED: POTASSIUM CHLORIDE 20MEQ/100ML 200 ML IV ONE (05:30)
[2019-03-01] MEDS: SODIUM CHLORIDE 0.9% 1000ML 1,000 ML IV SCH ×2 (06:44→08:17)
[2019-03-01] MEDS: FAMOTIDINE 20 MG TAB PO SCH ×2 (07:13→17:59)
[2019-03-01 08:00] VITALS: BP 124/86
[2019-03-01] MEDS: PANTOPRAZOLE 40 MG 10ML VIAL IV SCH ×2 (08:17→17:59)
[2019-03-01 12:00] VITALS: BP 114/76
[2019-03-01 12:25] VITALS: BP 114/76
[2019-03-01] MEDS: CHOLESTYRAMINE 4 GM PACKET PO PRN (13:48)
--- NOTE | 2019-03-01 14:34 | Progress Note ---
DATE: 03/01/2019 SUBJECTIVE: The patient was evaluated by GI last night and is awaiting possible endoscopy. His potassium was low and he received additional potassium this morning. PHYSICAL EXAMINATION: VITAL SIGNS: The patient is afebrile. The blood pressure is 114/76 and saturation is 100%. HEENT: Shows no facial swelling or erythema. CARDIAC: Reveals a regular rate and rhythm with normal S1 and S2. There are no murmurs or rubs heard. LUNGS: Auscultation of lungs reveals clear breath sounds bilaterally. There is no wheezing. ABDOMEN: Soft, nontender. There is no rebound or guarding. EXTREMITIES: Show no leg edema or calf tenderness. There is no cyanosis or clubbing. SKIN: Shows no rashes. NEUROLOGIC: Shows no focal abnormalities. IMPRESSION: 1. Hypokalemia. 2. Nausea and vomiting with hematemesis. 3. Diarrhea. 4. Thrombocytopenia. PLAN: 1. Awaiting upper endoscopy. 2. Replete potassium. 3. Continue Pepcid. 4. Monitor platelet counts. MD ANTHONY Barbosa/RAMESH /[id number]
--- NOTE | 2019-03-01 15:39 | NUR ---
PT TRANSFERRED TO ROOM 290 NURSE TO RESUME CARE
--- NOTE | 2019-03-01 15:45 | NUR ---
RECD PT FROM ICU VIA W/C ,AAOX3,DENIES PAIN,IV INFUSING TO LT FA 20 G.FAMILY AT BEDSIDE.
[2019-03-01] MEDS: OYST-CAL-D 500MG TABLET PO SCH (17:59)
--- NOTE | 2019-03-01 19:15 | NUR ---
PT UP IN BED DENIES PAIN,NO DISTRES NTOED.
--- NOTE | 2019-03-01 19:46 | NUR ---
Received change of shift report from AM nurse. Walking rounds completed.
[2019-03-01 20:00] VITALS: BP 138/88
[2019-03-02] VITALS: BP 140/83
--- NOTE | 2019-03-02 | NUR ---
Patient up out of bed to bathroom with no difficulty noted. Patient denies pain at this time.
[2019-03-02] MEDS: METRONIDAZOLE 500MG/NS 100ML 100 ML IV SCH ×3 (01:00→17:00)
[2019-03-02 04:00] VITALS: BP 135/73
--- NOTE | 2019-03-02 04:33 | NUR ---
Patient resting quily at this time. Continues monitor.
[2019-03-02 07:25] VITALS: BP 138/88
[2019-03-02 07:27] LABS: BASOPHILS % 0.5 % (0.0-1.0); EOSINOPHILS # (AUTO) 0.1 (0.0-0.4); EOSINOPHILS % 1.8 % (0.0-6.0); HEMATOCRIT 35.7 % (38.2-49.6); HEMOGLOBIN 12.6 g/dL (14.0-18.0); LYMPHOCYTES # (AUTO) 0.6 (1.0-3.2); LYMPHOCYTES % 14.1 % (18.0-39.1); MEAN CORPUSCULAR HEMOGLOBIN 33.4 pg (28-32); MEAN CORPUSCULAR HGB CONC 35.3 g/dL (31-35); MEAN CORPUSCULAR VOLUME 94.7 fL (81-99); MONOCYTES # (AUTO) 0.7 (0.2-0.8); MONOCYTES % 16.2 % (4.4-11.3); NEUTROPHILS # (AUTO) 2.9 (2.1-6.9); NEUTROPHILS % 66.7 % (38.7-80.0); PLATELET COUNT 144 x10e3/uL (140-360); RED BLOOD COUNT 3.77 x10e6/uL (4.3-5.7); RED CELL DISTRIBUTION WIDTH 11.6 % (11.7-14.4)
[2019-03-02 07:54] LABS: ANION GAP 9.3 mmol/L (8-16); BLOOD UREA NITROGEN < 5 mg/dL (7-26); CALCIUM 8.6 mg/dL (8.4-10.2); CARBON DIOXIDE 36 mmol/L (22-29); CHLORIDE 92 mmol/L (98-107); CREATININE, SERUM 0.58 mg/dL (0.72-1.25); EST GLOMERULAR FILTRATION RATE > 60 ML/MIN (60-); GLUCOSE 103 mg/dL (74-118); MAGNESIUM 1.8 MG/DL (1.3-2.1); SODIUM 135 mmol/L (136-145)
[2019-03-02 07:56] LABS: BUN/CREATININE RATIO 9 (6-25); POTASSIUM 2.3 mmol/L (3.5-5.1)
[2019-03-02 08:18] LABS: ALBUMIN 3.2 g/dL (3.5-5.0); BILIRUBIN,DIRECT 0.9 mg/dL (0.0-0.5)
[2019-03-02] MEDS: FAMOTIDINE 20 MG TAB PO SCH ×2 (08:30→17:00)
[2019-03-02] MEDS: PANTOPRAZOLE 40 MG 10ML VIAL IV SCH ×2 (08:30→17:00)
[2019-03-02] MEDS: OYST-CAL-D 500MG TABLET PO SCH ×2 (08:30→17:00)
--- NOTE | 2019-03-02 08:44 | NUR ---
SPOKE WITH DARIEL DAVIDSON,RE;LOW K+ ORDERS WRITEN
[2019-03-02 08:55] VITALS: BP 138/88
[2019-03-02] MEDS ORDERED: POTASSIUM CHLORIDE 20MEQ/100ML 200 ML IV ONE (09:00)
--- NOTE | 2019-03-02 11:30 | NUR ---
PT UP IN CHAIR NO DISTRESSNOTED.
[2019-03-02] MEDS: SODIUM CHLORIDE 0.9% 1000ML 1,000 ML IV SCH (12:40)
[2019-03-02] MEDS: CIPROFLOXACIN 200 MG/D5W 100ML 100 ML IV SCH (12:40)
[2019-03-02] MEDS ORDERED: POTASSIUM CHLORIDE 20 MEQ TAB CR PO ONE (13:45)
[2019-03-02 13:51] VITALS: BP 128/70
--- NOTE | 2019-03-02 14:13 | Progress Note ---
DATE: 03/02/2019 SUBJECTIVE: The patient originally declined GI evaluation, but now changed his mind. He is not having much diarrhea. His potassium is still low. PHYSICAL EXAMINATION: VITAL SIGNS: Stable. HEENT: Shows no facial swelling or erythema. CARDIAC: Reveals regular rate and rhythm with normal S1, S2. There are no murmurs or rubs. LUNGS: Auscultation of lungs reveals clear breath sounds bilaterally. There is no wheezing. ABDOMEN: Soft, nontender. EXTREMITIES: There is no leg edema. IMPRESSION: 1. Hypokalemia. 2. Diarrhea. 3. Hematemesis. 4. Thrombocytopenia. PLAN: 1. Replete potassium. 2. Continue to monitor platelets. 3. Await completion of GI evaluation. Carl Alvarez MD [facility]/ODALISL /[id number]
--- NOTE | 2019-03-02 15:05 | NUR ---
Visit made by the Spiritual Care Department Pastoral Visitor, Saud Levy, PV provided pastoral presence, communion, prayer, hospitality, and supportive listening. Pastoral Visitor informed pt/family of the scope of Radiation Protection Engineer Services and availability. VIKKI MOORE Manager Inside Spiritual Care Department O: [phone] Pager: [phone] ([phone] number calling from)
[2019-03-02] MEDS ORDERED: MAGNESIUM OXIDE 400 MG TAB PO SCH ×2 (16:30→22:15)
[2019-03-02] MEDS: CHOLESTYRAMINE 4 GM PACKET PO PRN (18:30)
--- NOTE | 2019-03-02 18:31 | NUR ---
PT UP I CHAIR ,STATES 4 BMS TODAY GENEVARAN GIVEN,DENIES PAIN
--- NOTE | 2019-03-02 19:25 | NUR ---
Received change of shift report from AM nurse. Walking rounds completed.
[2019-03-02 20:00] VITALS: BP 128/70
[2019-03-02] MEDS: POTASSIUM CHLORIDE 20 MEQ TAB CR PO SCH (20:19)
[2019-03-03] VITALS (7 sets, daily range): BP systolic 119–147; BP diastolic 80–86
[2019-03-03] MEDS: CIPROFLOXACIN 200 MG/D5W 100ML 100 ML IV SCH ×2 (00:45→13:46)
[2019-03-03] MEDS: METRONIDAZOLE 500MG/NS 100ML 100 ML IV SCH ×3 (01:00→18:15)
--- NOTE | 2019-03-03 06:00 | NUR ---
Consent signed for EGD with Dr Camejo. Patient NPO after MN.
[2019-03-03 06:50] LABS: ALANINE AMINOTRANSFERASE 36 IU/L (0-55); ALBUMIN 3.1 g/dL (3.5-5.0); ALBUMIN/GLOBULIN RATIO 1.1 (0.8-2.0); ALKALINE PHOSPHATASE 43 IU/L (40-150); ANION GAP 9.7 mmol/L (8-16); BLOOD UREA NITROGEN < 5 mg/dL (7-26); CALCIUM 8.6 mg/dL (8.4-10.2); CARBON DIOXIDE 30 mmol/L (22-29); CHLORIDE 96 mmol/L (98-107); CREATININE, SERUM 0.54 mg/dL (0.72-1.25); EST GLOMERULAR FILTRATION RATE > 60 ML/MIN (60-); GLUCOSE 101 mg/dL (74-118); SODIUM 133 mmol/L (136-145)
[2019-03-03 06:52] LABS: BUN/CREATININE RATIO 9 (6-25); POTASSIUM 2.7 mmol/L (3.5-5.1)
[2019-03-03 07:08] LABS: FOLATE 13.2 ng/mL (7.0-15.4)
[2019-03-03] MEDS: FAMOTIDINE 20 MG TAB PO SCH ×2 (07:30→18:15)
[2019-03-03 07:36] LABS: FERRITIN 648.04 ng/mL (21.81-274.66)
[2019-03-03] MEDS ORDERED: POTASSIUM CHLORIDE 20MEQ/100ML 300 ML IV ONE (08:30)
[2019-03-03] MEDS ORDERED: MAGNESIUM SULF 1GRAM/DEXTROSE 100 ML IV ONE (08:30)
[2019-03-03] MEDS ORDERED: POTASSIUM CHLORIDE 20MEQ/100ML 200 ML IV ONE ×2 (09:00→14:30)
[2019-03-03] MEDS: OYST-CAL-D 500MG TABLET PO SCH ×2 (09:00→18:15)
[2019-03-03] MEDS: PANTOPRAZOLE 40 MG 10ML VIAL IV SCH ×2 (09:28→18:15)
[2019-03-03] MEDS ORDERED: POTASSIUM CHLORIDE 20 MEQ TAB CR PO ONE ×2 (12:15→18:00)
[2019-03-03] MEDS ORDERED: POTASSIUM CHLORIDE 20MEQ/100ML 100 ML IV ONE (13:00)
[2019-03-03] MEDS ORDERED: MIDAZOLAM HCL 2 MG/2 ML VIAL ONE (14:05)
--- NOTE | 2019-03-03 14:06 | NUR ---
ST NOTE: Acknowledged order for bedside swallow evaluation. Pt is NPO for EGD and having potassium administered, will have to complete swallow evaluation in AM. Handoff to ANGEL Huddleston
[2019-03-03] MEDS ORDERED: PROPOFOL IV EMULSION 10 MG/ML 50 ML VIAL ONE (14:27)
[2019-03-03] MEDS ORDERED: LIDOCAINE HCL 2% LOCAL INJ 5 ML SDV VIAL INJ ONE (14:27)
--- NOTE | 2019-03-03 16:19 | NUR ---
PATIENT OFF THE UNIT TO ENDO- PATIENT IN STABLE CONDITION WITH NO S/S OF RESPIRATORY DISTRESS. NO PAIN VOICED. TELEMETRY APPLIED
[2019-03-03] MEDS ORDERED: POTASSIUM CHLORIDE 10MEQ EA PO ONE (18:00)
--- NOTE | 2019-03-03 18:19 | Progress Note ---
DATE: 03/03/2019 SUBJECTIVE: The patient's potassium was repleted. He is scheduled for endoscopy this afternoon. PHYSICAL EXAMINATION: VITAL SIGNS: The patient is afebrile. The vital signs are stable. HEENT: Shows no facial swelling or erythema. CARDIAC: Reveals regular rate and rhythm with normal S1, S2. LUNGS: Auscultation of lungs shows clear breath sounds bilaterally. There is no wheezing. ABDOMEN: Soft, nontender. There is no rebound or guarding. EXTREMITIES: Show no leg edema or calf tenderness. There is no cyanosis or clubbing. SKIN: Shows no rashes. IMPRESSION: 1. Nausea and vomiting with hematemesis. 2. Intractable hypokalemia. 3. Thrombocytopenia. PLAN: 1. Await results of endoscopy. 2. Continue to monitor potassium. Carl Alvarez MD [facility] /[id number]
[2019-03-03] MEDS: CHOLESTYRAMINE 4 GM PACKET PO PRN (18:25)
[2019-03-03] MEDS: SODIUM CHLORIDE 0.9% 1000ML 1,000 ML IV SCH (18:25)
--- NOTE | 2019-03-03 19:24 | NUR ---
PATIENT SITTING UP IN THE CHAIR- IN STABLE CONDITION WITH NO S/S OF RESPIRATORY DISTRESS. NO PAIN VOICED. IV FLUIDS INFUSING. BROTHER PRESENT NEAR PATIENT. CALL LIGHT IS WITHIN REACH, PATIENT INSTRUCTED TO CALL FOR ASSISTANCE NEEDED. BEDSIDE REPORT GIVEN TO ONCOMING NURSE.
--- NOTE | 2019-03-03 19:46 | NUR ---
PT IS SITTING IN THE CHAIR VISITING WITH HIS BROTHER. RESPIRATION IS EVEN AND UNLABORED, NO DISTRESS NOTED. BED IN THE LOWEST POSITION, LOCKED, AND CALL LIGHT WITHIN REACH. WILL CONTINUE TO MONITOR.
[2019-03-03] MEDS: POTASSIUM CHLORIDE 20 MEQ TAB CR PO SCH (20:30)
[2019-03-04] VITALS (9 sets, daily range): BP systolic 122–177; BP diastolic 64–95
[2019-03-04] MEDS: CIPROFLOXACIN 200 MG/D5W 100ML 100 ML IV SCH ×2 (00:34→13:07)
[2019-03-04] MEDS: METRONIDAZOLE 500MG/NS 100ML 100 ML IV SCH ×3 (01:40→16:26)
[2019-03-04 03:51] LABS: BASOPHILS % 0.4 % (0.0-1.0); EOSINOPHILS # (AUTO) 0.2 (0.0-0.4); EOSINOPHILS % 3.7 % (0.0-6.0); HEMATOCRIT 37.8 % (38.2-49.6); HEMOGLOBIN 12.9 g/dL (14.0-18.0); LYMPHOCYTES # (AUTO) 1.1 (1.0-3.2); LYMPHOCYTES % 19.7 % (18.0-39.1); MEAN CORPUSCULAR HEMOGLOBIN 33.6 pg (28-32); MEAN CORPUSCULAR HGB CONC 34.1 g/dL (31-35); MONOCYTES # (AUTO) 1.2 (0.2-0.8); MONOCYTES % 20.9 % (4.4-11.3); NEUTROPHILS # (AUTO) 3.1 (2.1-6.9); NEUTROPHILS % 54.9 % (38.7-80.0); PLATELET COUNT 170 x10e3/uL (140-360); RED BLOOD COUNT 3.84 x10e6/uL (4.3-5.7); RED CELL DISTRIBUTION WIDTH 11.9 % (11.7-14.4)
[2019-03-04 03:52] LABS: MEAN CORPUSCULAR VOLUME 98.4 fL (81-99)
[2019-03-04 04:11] LABS: ANION GAP 9.6 mmol/L (8-16); BLOOD UREA NITROGEN < 5 mg/dL (7-26); BUN/CREATININE RATIO 8 (6-25); CALCIUM 8.9 mg/dL (8.4-10.2); CARBON DIOXIDE 29 mmol/L (22-29); CHLORIDE 96 mmol/L (98-107); EST GLOMERULAR FILTRATION RATE > 60 ML/MIN (60-); GLUCOSE 94 mg/dL (74-118); POTASSIUM 3.6 mmol/L (3.5-5.1); SODIUM 131 mmol/L (136-145)
[2019-03-04] MEDS ORDERED: QUESTRAN PACKET4 GM PO (05:36)
[2019-03-04] MEDS ORDERED: CIPRO500 MG PO (05:36)
[2019-03-04] MEDS ORDERED: METRONIDAZOLE500 MG PO (05:36)
[2019-03-04] MEDS ORDERED: PANTOPRAZOLE SO40 MG PO (05:36)
[2019-03-04] MEDS ORDERED: POTASSIUM CHLO20 ME1 PO (05:37)
--- NOTE | 2019-03-04 07:45 | NUR ---
PATIENT IS SITTING IN THE CHAIR- IN STABLE CONDITION WITH NO S/S OF RESPIRATORY DISTRESS. NO PAIN VOICED. TELEMETRY APPLIED. CALL LIGHT IS WITHIN REACH, PATIENT INSTRUCTED TO CALL FOR ASSISTANCE NEEDED.
[2019-03-04] MEDS: OYST-CAL-D 500MG TABLET PO SCH ×2 (08:41→16:26)
[2019-03-04] MEDS: FAMOTIDINE 20 MG TAB PO SCH ×2 (08:41→15:39)
[2019-03-04] MEDS: PANTOPRAZOLE 40 MG 10ML VIAL IV SCH ×2 (08:41→16:26)
--- NOTE | 2019-03-04 12:38 | Progress Note ---
DATE: 03/04/2019 SUBJECTIVE: The patient underwent EGD yesterday. His potassium is now within the normal range. He has no further nausea or vomiting. PHYSICAL EXAMINATION: VITAL SIGNS: The patient is afebrile. The vital signs are stable. HEENT: Shows no facial swelling or erythema. CARDIAC: Reveals regular rate and rhythm with a normal S1, S2. There are no murmurs or rubs. ABDOMEN: Soft, nontender. EXTREMITIES: There is no leg edema or calf tenderness. IMPRESSION: 1. Hypokalemia. 2. Gastroenteritis. PLAN: 1. Discharge home. 2. Complete antibiotics. Carl Alvarez MD [facility]/RAMESH /[id number]
--- NOTE | 2019-03-04 12:42 | NUR ---
PATIENT OFF THE UNIT PER WHEELCHAIR TO RADIOLOGY- PATIENT IN STABLE CONDITION WITH NO S/S OF RESPIRATORY DISTRESS. TELEMETRY APPLIED.
--- NOTE | 2019-03-04 13:06 | NUR ---
PATIENT BACK ON THE UNIT- PATIENT IN STABLE CONDITION WITH NO S/S OF RESPIRATORY DISTRESS. TELEMETRY APPLIED. IV ANTIBIOTIC INFUSING. CALL LIGHT IS WITHIN REACH OF PATIENT.
--- NOTE | 2019-03-04 17:37 | Diagnostic Imaging Report ---
Modified barium swallow, 03/04/2019. History: Dysphagia. Fluoro time: 3.2 min. Dose: 19.5 mGy (DONTRELL) Technique: Fluoroscopy was performed by exercise equipment repair technician. A radiologist was not present for exam. Fluoroscopic observation and imaging of the oral cavity, oropharynx, and hypopharynx was performed in the lateral projection during swallowing of liquids and solids, administered by speech pathology. See speech pathologist report for findings. Signed by: Jose Beltre on 03/04/2019 5:34 PM
--- NOTE | 2019-03-04 18:04 | NUR ---
INFORMED N.P. OF THE PATIENT'S BM'S (TOTAL 3) AND PATIENT EATING ABOUT HALF IS PORTION SIZE ON EACH MEAL. PATIENT STATES "I DONT REALLY LIKE THE FOOD". WAITING FOR POSSIBLE DISCHARGE ORDERS.
--- NOTE | 2019-03-04 19:22 | NUR ---
PATIENT IS SITTING IN THE CHAIR- IN STABLE CONDITION WITH NO S/S OF RESPIRATORY DISTRESS. NO PAIN VOICED. TELEMETRY APPLIED. SISTER PRESENT IN ROOM. CALL LIGHT IS WITHIN REACH, PATIENT INSTRUCTED TO CALL FOR ASSISTANCE NEEDED. BEDSIDE REPORT GIVEN TO ONCOMING NURSE.
--- NOTE | 2019-03-04 19:44 | NUR ---
PT IS SITTING IN THE CHAIR VISITING WITH HIS SISTER. RESPIRATION IS EVEN AND UNLABORED, NO DISTRESS NOTED. BED IN THE LOWEST POSITION, LOCKED, AND CALL LIGHT WITHIN REACH. WILL CONTINUE TO MONITOR.
[2019-03-04] MEDS: POTASSIUM CHLORIDE 20 MEQ TAB CR PO SCH (21:01)
[2019-03-04] MEDS ORDERED: DICYCLOMINE HCL 10 MG CAP PO STA (23:29)
[2019-03-05] VITALS: BP 145/69
[2019-03-05] MEDS: CIPROFLOXACIN 200 MG/D5W 100ML 100 ML IV SCH ×2 (00:01→13:30)
[2019-03-05] MEDS: METRONIDAZOLE 500MG/NS 100ML 100 ML IV SCH ×3 (01:23→17:00)
--- NOTE | 2019-03-05 02:56 | Operative Report ---
DATE OF PROCEDURE: 03/03/2019 SURGEON: Haim Camejo MD PROCEDURE: EGD. INDICATIONS FOR EGD: Hematemesis. MEDICATIONS: The patient was done under MAC, please see anesthesiologist's note. PROCEDURE IN DETAIL: With the patient in left lateral decubitus position, a flexible fiberoptic Olympus gastroscope was introduced into the esophagus under direct visualization without any difficulty. There was some patchy erythema noted in distal esophagus. The scope was then advanced with ease into the stomach traversing a moderate-sized hiatal hernia. Mucosa overlying the antrum and the body revealed some diffuse erythema and [id number] edema and biopsies were obtained and sent to stain for H pylori. The pylorus was of normal contour and shape and was intubated with ease and the scope was advanced all the way to the second portion of the duodenum. The second portion as well as the duodenal bulb appeared to be within normal limits. The scope was then withdrawn back into the stomach and retroflexed. Mucosa overlying the fundus appeared to be within normal limits. The previously described hiatal hernia was also noted in the retroflexed position. The scope was then straightened out and was subsequently withdrawn. The patient tolerated the procedure well. IMPRESSION: 1. Distal esophagitis. 2. Moderate size hiatal hernia. 3. Gastritis, biopsied. Biopsies sent to stain for Helicobacter pylori. PLAN: Follow up histology. Continue current therapy. Haim Camejo MD [facility] [place]/[facility] /[id number] cc: Jimy Alberts MD
[2019-03-05 04:00] VITALS: BP 129/78
[2019-03-05 04:00] LABS: BASOPHILS % 0.4 % (0.0-1.0); EOSINOPHILS # (AUTO) 0.2 (0.0-0.4); EOSINOPHILS % 5.1 % (0.0-6.0); HEMATOCRIT 34.8 % (38.2-49.6); HEMOGLOBIN 12.2 g/dL (14.0-18.0); LYMPHOCYTES # (AUTO) 0.8 (1.0-3.2); LYMPHOCYTES % 17.4 % (18.0-39.1); MEAN CORPUSCULAR HEMOGLOBIN 33.7 pg (28-32); MEAN CORPUSCULAR HGB CONC 35.1 g/dL (31-35); MEAN CORPUSCULAR VOLUME 96.1 fL (81-99); MONOCYTES # (AUTO) 1.1 (0.2-0.8); MONOCYTES % 25.2 % (4.4-11.3); NEUTROPHILS # (AUTO) 2.3 (2.1-6.9); NEUTROPHILS % 51.5 % (38.7-80.0); PLATELET COUNT 207 x10e3/uL (140-360); RED BLOOD COUNT 3.62 x10e6/uL (4.3-5.7); RED CELL DISTRIBUTION WIDTH 11.9 % (11.7-14.4)
[2019-03-05 04:18] LABS: ANION GAP 10.3 mmol/L (8-16); BLOOD UREA NITROGEN < 5 mg/dL (7-26); CALCIUM 8.9 mg/dL (8.4-10.2); CARBON DIOXIDE 29 mmol/L (22-29); CHLORIDE 97 mmol/L (98-107); CREATININE, SERUM 0.57 mg/dL (0.72-1.25); EST GLOMERULAR FILTRATION RATE > 60 ML/MIN (60-); GLUCOSE 93 mg/dL (74-118); MAGNESIUM 1.7 MG/DL (1.3-2.1); POTASSIUM 3.3 mmol/L (3.5-5.1); SODIUM 133 mmol/L (136-145)
[2019-03-05 04:19] LABS: BUN/CREATININE RATIO 9 (6-25)
[2019-03-05 08:00] VITALS: BP 130/80
[2019-03-05] MEDS: FAMOTIDINE 20 MG TAB PO SCH ×2 (08:34→17:08)
[2019-03-05] MEDS: PANTOPRAZOLE 40 MG 10ML VIAL IV SCH ×2 (08:34→17:00)
[2019-03-05] MEDS: DICYCLOMINE HCL 10 MG CAP PO SCH ×2 (08:34→17:08)
[2019-03-05] MEDS: OYST-CAL-D 500MG TABLET PO SCH ×2 (08:34→17:08)
--- NOTE | 2019-03-05 08:38 | Progress Note ---
DATE: 03/05/2019 SUBJECTIVE: The patient's potassium was repleted yesterday. He is not having any nausea or vomiting. He is eager to go home. PHYSICAL EXAMINATION: VITAL SIGNS: The patient is afebrile. The vital signs are stable. HEENT: Shows no facial swelling or erythema. CARDIAC: Reveals a regular rate and rhythm with normal S1 and S2. LUNGS: Auscultation of lungs reveals clear breath sounds bilaterally. ABDOMEN: Soft and nontender. There is no rebound or guarding. EXTREMITIES: Show no leg edema or calf tenderness. IMPRESSION: 1. Gastroenteritis. 2. Hematemesis. 3. Hypokalemia. PLAN: 1. Arrange for discharge today. 2. Repeat potassium as outpatient. Carl Alvarez MD [facility] /[id number]
[2019-03-05 11:54] VITALS: BP 176/101
[2019-03-05] MEDS ORDERED: POTASSIUM CHLO20 ME1 PO (15:47)
[2019-03-05] MEDS ORDERED: METRONIDAZOLE500 MG PO (15:47)
[2019-03-05] MEDS ORDERED: CIPRO500 MG PO (15:47)
[2019-03-05] MEDS ORDERED: LOPERAMIDE2 MG PO (15:47)
[2019-03-05 16:00] VITALS: BP 125/82
[2019-03-05] MEDS ORDERED: ONDANSETRON HCL 4 MG ORAL DISINTEGRATING TAB PO PRN (16:15)
[2019-03-05] MEDS ORDERED: POTASSIUM CHLORIDE 20 MEQ TAB CR PO ONE (16:30)
--- NOTE | 2019-03-05 18:16 | NUR ---
Pt discharged home at this time. Pt and family member verbalized understanding of all discharge instructions and follow up appt. Pt will be going to outpt speech therapy.
--- NOTE | 2019-03-06 23:23 | Discharge Summary ---
ADMISSION DIAGNOSES: 1. Gastroenteritis with septic shock. 2. Hypokalemia. 3. Hypercalcemia. 4. Transaminitis. 5. AMS. DISCHARGE DIAGNOSES: 1. Gastroenteritis with septic shock. 2. Hypokalemia. 3. Hypercalcemia. 4. Transaminitis. 5. AMS. 6. Rule out cerebrovascular accident. 7. Rule out transient ischemic attack. 8. Rule out C. difficile. 9. Gastritis. 10. Esophagitis. 11. Moderate hiatal hernia. PAST MEDICAL HISTORY: Cerebral palsy. PAST SURGICAL HISTORY: None. FAMILY HISTORY: None. SOCIAL HISTORY: The patient admits to drinking 6-12 beers per day and 1 pack of cigarettes a day. HOSPITAL COURSE: A 63-year-old male, complains of nausea, vomiting, diarrhea x2-3 days. His family brought him to the ER due to AMS. He has cerebral palsy and his brother and sister are his caretakers. He denies recent antibiotic use and sick contacts. No fever or chills per patient report. On admission, chest x-ray was negative. CT of the brain showed generalized cerebral volume loss, no acute abnormalities. CT of the abdomen and pelvis with contrast showed no acute abdominal pelvic abnormalities, small hiatal hernia. The patient was started on Cipro and Flagyl. On admission, his lactic acid was 216.4. The patient's UA was negative. C. difficile was negative. Anion gap was 40.8 on admission, calcium was 10.6 and improved with IV fluids. The following day, the AMS had resolved and the patient remained oriented for the entire hospitalization. To rule out aspiration, Speech Therapy was consulted, who said the patient can be on a regular diet with thin liquids, they recommended enema to improve strength and coordination of the swallow and then repeat the MBS in 4 to 6 weeks. Due to continued diarrhea, the potassium dropped daily before being started on potassium p.o. He then had an EGD per GI, which showed distal esophagitis, moderate hiatal hernia and gastritis. Echo showed an EF of 55% to 60%. EKG showed sinus tachycardia. Stool lactoferrin was positive. Urine drug screen was negative except cannabis. His stool culture was negative for Salmonella, Shigella, Campylobacter, and E. coli. Parasite and ova were pending at time of discharge. The patient was given very strict instructions to follow up with Dr. Camejo in the next couple of days for a colonoscopy. He was sent home with 5 days of Cipro, Flagyl, and potassium and 30 days worth of Protonix. The patient understands discharge instructions and agrees to plan. The diarrhea has stopped and he is tolerating food. Dictated by Giuliana Kolb, JANN MD [facility]EV[facility] Jay/[facility] /[id number]
== END 2019-03-05 18:16 | disposition home or self-care (01) | DRG 871 ==
LOC: ER 17:58 → ERHOLD 20:21 → ICU 21:30 → MED/SURG3 03-01 15:04
PROVIDERS: ADMIT Internal Medicine; ATTEND Internal Medicine
PROC: 0DB78ZX Excision of Stomach, Pylorus, Via Natural or Artificial Opening Endoscopic, Diagnostic (ICD-10-PCS; principal; 2019-03-03 16:46)
DX: A41.9 Sepsis, unspecified organism (principal); R65.21 Severe sepsis with septic shock; K92.0 Hematemesis; A09 Infectious gastroenteritis and colitis, unspecified; E87.6 Hypokalemia; E83.52 Hypercalcemia; K29.70 Gastritis, unspecified, without bleeding; K44.9 Diaphragmatic hernia without obstruction or gangrene; G80.9 Cerebral palsy, unspecified; D69.6 Thrombocytopenia, unspecified; K20.9 Esophagitis, unspecified; F10.20 Alcohol dependence, uncomplicated; D64.9 Anemia, unspecified
CPT/HCPCS: 36415; 43239; 70450; 71045; 74177; 74230; 80048; 80053; 80076; 80307; 80320; 80329; 81001; 82306; 82550; 82553; 82607; 82728; 82746; 83540; 83605; 83630; 83735; 83880; 83970; 84132; 84443; 84466; 84484; 85025; 85045; 85610; 85730; 87040; 87045; 87086; 87177; 87493; 88305; 88312; 93005; 93306; 99284; J0696; J2001; J2250; J2405; J2550; J3370; J3475; J3480; J7030; Q9967

== ENCOUNTER 2020-02-28 19:55 | Emergency (ER) | payer OTHER ==
[~2020-02-28] VITALS: Ht 167.6 cm; Wt 54.4 kg
[~2020-02-28 19:55] MED LIST changes: +LOPERAMIDE2 MG PO; +METRONIDAZOLE500 MG PO; +PANTOPRAZOLE SO40 MG PO; +POTASSIUM CHLO20 ME1 PO; +QUESTRAN PACKET4 GM PO
[2020-02-28] MEDS ORDERED: LACTATED RINGER'S 1,000 ML INJ ONE ×2 (20:00→22:15)
--- NOTE | 2020-02-28 20:20 | NUR ---
Patient has tremors due to cerebral palsy. EKG obtained with artifact. ROSA ROY notified.
[2020-02-28 20:21] LABS: BASOPHILS % 0.1 % (0.0-1.0); EOSINOPHILS % 0.1 % (0.0-6.0); HEMATOCRIT 43.4 % (38.2-49.6); LYMPHOCYTES # (AUTO) 0.5 (1.0-3.2); LYMPHOCYTES % 4.9 % (18.0-39.1); MEAN CORPUSCULAR HEMOGLOBIN 33.5 pg (28-32); MEAN CORPUSCULAR HGB CONC 34.6 g/dL (31-35); MEAN CORPUSCULAR VOLUME 96.9 fL (81-99); MONOCYTES # (AUTO) 0.4 (0.2-0.8); MONOCYTES % 4.6 % (4.4-11.3); NEUTROPHILS # (AUTO) 8.6 (2.1-6.9); PLATELET COUNT 224 x10e3/uL (140-360); RED BLOOD COUNT 4.48 x10e6/uL (4.3-5.7); RED CELL DISTRIBUTION WIDTH 11.9 % (11.7-14.4)
[2020-02-28] MEDS ORDERED: ONDANSETRON HCL INJ 2MG/ML 2ML 2 MG/ML VIAL IV STA (20:23)
--- NOTE | 2020-02-28 20:31 | Emergency Department Note ---
History of Present Illnes History of Present Illness Chief Complaint: Abdominal Complaints History of Present Illness This is a 64 year old male Chief Complaint Comment pt came from residence for c/o nausea, vomiting, abdominal pain x 3 days, as per pts sister, pt may have "low potassium" due to a similar episode that he had last year, pt states that he's been out in the sun and that he might be dehydrated. Historian: Patient Arrival Mode: Car Probate Clerk Required: No Onset (how long ago): day(s) (3) Location: abdomen Quality: Nausea/vomiting Radiation: Reports non-radiation Severity: moderate Onset quality: gradual Duration (how long): day(s) (3) Timing of current episode: constant Progression: worsening Chronicity: recurrent Context: Denies recent illness Relieving factors: none Exacerbating factors: none Associated symptoms: Reports denies other symptoms Past Medical/Family History Physician Review I have reviewed the patient's past medical and family history. Any updates have been documented here. Past Medical History Recent Fever: No Clinical Suspicion of Infectio: No New/Unexplained Change in Ment: No Other Medical History: cerebral palsy Past Surgical History: None Other Last Tetanus: UNKNOWN Any Pre-Existing Lines (PICC,: No Review of Systems Review of Systems Constitutional: Reports no symptoms EENTM: Reports no symptoms Cardiovascular: Reports no symptoms Respiratory: Reports no symptoms Gastrointestinal: Reports abdominal pain, Reports nausea, Reports vomiting Genitourinary: Reports no symptoms Musculoskeletal: Reports no symptoms Integumentary: Reports no symptoms Neurological: Reports no symptoms Psychological: Reports no symptoms Endocrine: Reports no symptoms Hematological/Lymphatic: Reports no symptoms Physical Exam Related Data Allergies: Coded Allergies: No Known Allergies (Unverified , 01/03/19) Triage Vital Signs Vital Signs Date Time Temp Pulse Resp B/P (MAP) Pulse Ox O2 Delivery O2 Flow Rate FiO2 02/28/20 20:11 98.2 129 20 153/98 95 Room Air Vital signs reviewed: Yes Physical Exam CONSTITUTIONAL Constitutional: Present well-developed, Present other (Resting tremor (old)); Absent distressed HENT HENT: Present normocephalic, Present atraumatic, Present oropharynx clear/moist, Present nose normal HENT L/R: Present left ext ear normal, Present right ext ear normal EYES Eyes: Reports PERRL, Reports conjunctivae normal NECK Neck: Present ROM normal PULMONARY Pulmonary: Present effort normal, Present breath sounds normal CARDIOVASCULAR Cardiovascular: Present regular rhythm, Present heart sounds normal, Present capillary refill normal, Present normal rate GASTROINTESTINAL Abdominal: Present soft, Present bowel sounds normal, Present tender (RLQ) GENITOURINARY Genitourinary: Present exam deferred SKIN Skin: Present warm, Present dry MUSCULOSKELETAL Musculoskeletal: Present ROM normal NEUROLOGICAL Neurological: Present alert, Present oriented x 3, Present no gross motor or sensory deficits PSYCHOLOGICAL Psychological: Present mood/affect normal, Present judgement normal Results Laboratory Result Diagram: 02/28/202006 Laboratory Laboratory Tests Test 02/28/20 20:07 White Blood Count 9.58 x10e3/uL (4.8-10.8) Red Blood Count 4.48 x10e6/uL (4.3-5.7) Hemoglobin 15.0 g/dL (14.0-18.0) Hematocrit 43.4 % (38.2-49.6) Mean Corpuscular Volume 96.9 fL (81-99) Mean Corpuscular Hemoglobin 33.5 pg (28-32) Mean Corpuscular Hemoglobin Concent 34.6 g/dL (31-35) Red Cell Distribution Width 11.9 % (11.7-14.4) Platelet Count 224 x10e3/uL (140-360) Neutrophils (%) (Auto) 90.0 % (38.7-80.0) Lymphocytes (%) (Auto) 4.9 % (18.0-39.1) Monocytes (%) (Auto) 4.6 % (4.4-11.3) Eosinophils (%) (Auto) 0.1 % (0.0-6.0) Basophils (%) (Auto) 0.1 % (0.0-1.0) Neutrophils # (Auto) 8.6 (2.1-6.9) Lymphocytes # (Auto) 0.5 (1.0-3.2) Monocytes # (Auto) 0.4 (0.2-0.8) Eosinophils # (Auto) 0.0 (0.0-0.4) Basophils # (Auto) 0.0 (0.0-0.1) Absolute Immature Granulocyte (auto 0.03 x10e3/uL (0-0.1) Lab results reviewed: Yes Imaging Imaging results reviewed: Yes Procedures 12 Lead ECG Interpretation ECG Interpretation : Probate Clerk: Interpreted by ED physician Date: Feb 28, 2020 Rhythm: sinus rhythm Rate: normal QRS axis: normal ST segments normal: Yes (Very poor quality EKg 2/2 tremor) T waves normal: Yes Clinical Impression: non-specific ECG (Poor quality EKg due to tremor) Assessment & Plan Medical Decision Making MDM 64-year-old male with past medical history significant for hypokalemia and alcohol abuse presents to the emergency department for abdominal pain, nausea, vomiting. Per his sister he spends most of his day sitting outside in the heat drinking beer. He has had a similar presentation to this and it was secondary to his low potassium. Examination shows some mild right lower quadrant tenderness to palpation which largely responded to fluids and patient is now pain-free. He was given 2 L of LR and his workup including labs and CT are unremarkable. Serum ketones .4. Initially he had an elevated anion gap which resolved with 2 L of fluid. Patient was reexamined and is well-appearing. Discussed results with patient and he is appropriate for discharge. I told him that he needs to discontinue drinking alcohol and being in the sun. Reassessment Reassessment time: 22:45 Reassessment Well appearing, VS improved and pain is much improved. Assessment & Plan Final Impression: (1) Dehydration Depart Disposition: HOME, SELF-CARE Last Vital Signs Date Time Temp Pulse Resp B/P (MAP) Pulse Ox O2 Delivery O2 Flow Rate FiO2 02/28/20 20:17 98.2 120 17 146/106 95 Room Air Home Meds Active Scripts Ondansetron Hcl* (ZOFRAN*) 4 Mg Tablet, 4 MG PO BID PRN for NAUSEA, #10 TAB 0 Refills Prov:DARA MCCLELLAN MD 02/28/20 Loperamide Hcl (LOPERAMIDE) 2 Mg Tablet, 2 MG PO Q4HR PRN for DIARRHEA, #20 CAP Prov:YADIRA GAMBOA NP 03/05/19 Potassium Chloride (POTASSIUM CHLORIDE) 20 Meq Tab.er.prt, 40 MEQ PO DAILY for 5 Days Prov:YADIRA GAMBOA NP 03/05/19 Metronidazole (METRONIDAZOLE) 500 Mg Tablet, 500 MG PO Q8H for 5 Days, TAB Prov:YADIRA GAMBOA NP 03/05/19 Ciprofloxacin Hcl (CIPRO) 500 Mg Tablet, 500 MG PO Q12H for 5 Days, TAB Prov:YADIRA GAMBOA [employer] 03/05/19 Pantoprazole Sodium* (PROTONIX) 40 Mg Tablet., 40 MG PO ACB, #30 TAB Prov:YADIRA GAMBOA [employer] 03/04/19 Medications in the ED Lactated Ringer's 1,000 ml @ 0 mls/hr Q0M ONCE INJ Last administered on 02/28/20at 20:19; Admin Dose 999 MLS/HR; Start 02/28/20 at 20:00; Stop 02/28/20 at 20:01; Status DC Ondansetron HCl 4 mg NOW STAT IV ; Start 02/28/20 at 20:23; Stop 02/28/20 at 20:24; Status UNV DARA MCCLELLAN MD Feb 28, 2020 20:31
[2020-02-28 20:41] LABS: ALANINE AMINOTRANSFERASE 32 IU/L (0-55); ALBUMIN 4.5 g/dL (3.5-5.0); ALBUMIN/GLOBULIN RATIO 1.2 (0.8-2.0); ALKALINE PHOSPHATASE 63 IU/L (40-150); ANION GAP 25.3 mmol/L (8-16); BLOOD UREA NITROGEN < 5 mg/dL (7-26); CALCIUM 9.8 mg/dL (8.4-10.2); CARBON DIOXIDE 25 mmol/L (22-29); CHLORIDE 93 mmol/L (98-107); CREATININE, SERUM 0.77 mg/dL (0.72-1.25); EST GLOMERULAR FILTRATION RATE > 60 ML/MIN (60-); GLUCOSE 159 mg/dL (74-118); POTASSIUM 3.3 mmol/L (3.5-5.1); SODIUM 140 mmol/L (136-145)
[2020-02-28 20:47] LABS: BUN/CREATININE RATIO 6 (6-25)
[2020-02-28 21:02] LABS: LYMPHOCYTES % (MANUAL) 5 % (19-48); MONOCYTES % (MANUAL) 4 % (3.4-9.0); NEUTROPHILS % (MANUAL) 91 % (40-74); PLATELET ESTIMATE ADEQUATE; PLATELET MORPHOLOGY COMMENT NORMAL; RBC MORPHOLOGY COMMENT NORMAL
[2020-02-28 21:07] LABS: LIPASE 14 U/L (8-78)
--- OUTSIDE RECORDS SUMMARY | 2020-02-28 21:15 | XMS REPORT | Continuity of Care Document ---
Author Author [facility] Organization [facility] Address [address] [place] [address] Phone Unavailable Care Team Providers Care Telecom Manager Name Role Phone NO, PCP PCP Unavailable KILLSENIA ROSAS Attphys Unavailable ALEX, S AMBICA Attphys Unavailable KILLAMSENIA Admphys Unavailable Payers Payer Name Policy Type Policy Number Effective Date Expiration Date Manuel lloyd [employer] [id number] 2018 00:00:00 [facility] [employer] [id number] 2018 00:00:00 [facility] Problems Condition Name Condition Details Condition Category Status Onset Date Resolution Date Last Treatment Date Treating Clinician Comments Source Dehydration Dehydration Problem Active [facility] Diarrhea Diarrhea Problem Active [facility] Fever Fever Problem Active [facility] Hypokalemia Hypokalemia Problem Active [facility] Sepsis Sepsis Problem Active [facility] Vomiting Vomiting Problem Active [facility] Allergies, Adverse Reactions, Alerts This patient has no known allergies or adverse reactions. Medications Ordered Medication Name Filled Medication Name Start Date Stop Da te Current Medication? Ordering Clinician Indication Dosage Frequency Signature (SIG) Comments Components Source Ciprofloxacin Hcl (Cipro) 500 Mg Tablet Ciprofloxacin Hcl (C ipro) 500 Mg Tablet 2019-03-05 00:00:00 Yes Giuliana Kolb [place] Inventory Control Executive 500 Every 1 2 Hours [facility] Loperamide Hcl (Loperamide) 2 Mg Tablet Loperamide Hcl (Yvette ramide) 2 Mg Tablet 2019-03-05 00:00:00 Yes Giuliana Kolb Top Inventory Control Executive 2 Every 4 Hours as needed for Diarrhea [facility] Metronidazole 500 Mg Tablet Metronidazole 500 Mg Tablet 2019-03-05 00:00:00 Yes Giuliana M [place] Top Inventory Control Executive 500 Every 8 Hours [facility] Potassium Chloride 20 Meq Tab.er.prt Potassium Chloride 20 M eq Tab.er.prt 2019-03-05 00:00:00 Yes Giuliana M [place] Top Inventory Control Executive 40 Daily [facility] Pantoprazole Sodium (Protonix) 40 Mg Tablet. Pantopr azole Sodium (Protonix) 40 Mg Tablet. 2019-03-04 00:00:00 Yes Giuliana M [place] Top Inventory Control Executive 40 Before Breakfast [facility] Ciprofloxacin Hcl (Cipro) 500 Mg Tablet, 500 Mg Oral C iprofloxacin Hcl (Cipro) 500 Mg Tablet, 500 Mg Oral 2019-03-04 00:00:00 2019-03-05 00:00:00 No Giuliana M [place] Top Inventory Control Executive 500 Every 12 Hours [facility] Metronidazole 500 Mg Tablet, 500 Mg Oral Metronidazole 500 Mg Tablet, 500 Mg Oral 2019-03-04 00:00:00 2019-03-05 00:00:00 No Giuliana M [place] Top Inventory Control Executive 500 Every 8 Hours [facility] Potassium Chloride 20 Meq Tab.er.prt, 20 Meq Oral Pota ssium Chloride 20 Meq Tab.er.prt, 20 Meq Oral 2019-03-04 00:00:00 2019-03-05 00:00:00 No Giuliana M [place] Top Inventory Control Executive 20 Daily [facility] Ciprofloxacin Hcl (Cipro) 500 Mg Tablet, 250 Mg Oral C iprofloxacin Hcl (Cipro) 500 Mg Tablet, 250 Mg Oral 2019-01-03 00:00:00 2019-02-27 00:00:00 No Chris Cantor Md 250 Twice A Day [facility] Metronidazole (Flagyl) 500 Mg Tablet, 500 Mg Oral Metr onidazole (Flagyl) 500 Mg Tablet, 500 Mg Oral 2019-01-03 00:00:00 2019-02-27 00:00:00 No Russell Cantor Md 500 Every 8 Hours [facility] Procedures Procedure Date / Time Performed Performing Clinician Sourc e EGD with biopsy 2019-03-03 00:00:00 YAIR MANCILLA [facility] Computed tomography of brain without radiopaque contrast 201 03-23-14 00:00:00 JOSE GAMA [facility] Computed tomography of abdomen and pelvis with contrast 2018 00:00:00 JOSE GAMA [facility] Computed tomography of abdomen and pelvis with contrast 2018 00:00:00 ALEXCHRIS BO [facility] Encounters Start Date/Time End Date/Time Encounter Type Admission Type [facility] Care Department Encounter ID Source 2019-02-26 20:21:00 2019-03-05 18:16:00 Discharged Inpatient [address] [facility] [id number] [facility] 2019-01-02 23:56:00 2019-01-03 06:45:00 Departed Emergency Room [address] [facility] [id number] [facility] Results Test Description Test Time Test Comments Results Result Comments Source Sodium Level 2019-03-05 04:19:00 Test Item Sodium Level (test code = 2951-2) 133 136-145 L [facility]Potassium Msrrq3562-45-35 04:19:00* Test Item Value Reference Range Interpretation Comments Potassium Level (test code = 2823-3) 3.3 3.5-5.1 L [facility] CenterChloride Cekgy4131-35-92 04:19:00* Test Item Value Reference Range Interpretation Comments Chloride Level (test code = 2075-0) 97 98-107 L [facility] CenterCarbon Dioxide Jkhhv3186-52-79 04:19:00* Test Item Value Reference Range Interpretation Comments Carbon Dioxide Level (test code = 2028-9) 29 22-29 [facility] CenterAnion Mcc2977-17-05 04:19:00* Test Item Value Reference Range Interpretation Comments Anion Gap (test code = 34463-9) 10.3 8-16 [facility] CenterBlood Urea Joqgmrwc1363-06-07 04:19:00* Test Item Value Reference Range Interpretation Comments Blood Urea Nitrogen (test code = 3094-0) < 5 7-26 L [facility] CenterCreatinine2019-08-21 04:19:00* Test Item Value Reference Range Interpretation Comments Creatinine (test code = 2160-0) 0.57 0.72-1.25 L [facility] CenterBUN/Creatinine Fsgfi9470-95-64 04:19:00* Test Item Value Reference Range Interpretation Comments BUN/Creatinine Ratio (test code = 3097-3) 9 6-25 [facility] CenterEstimat Glomerular Filtration Rate 2019-03-05 04:19:00* Test Item Value Reference Range Interpretation Comments Estimat Glomerular Filtration Rate (test code = 242249465) > 60 >60 Ranges were taken from the National Kidney Disease Education Program and the [facility] Kidney Foundation literature.Reference ranges:60 or greater: Vzbovd44-26 ( for 3 consecutive months): Chronic kidney disease 15 or less: Kidney failureBaylor University Medical CenterGlucose Kzjcr7475-86-15 04:19:00* Test Item Value Reference Range Interpretation Comments Glucose Level (test code = IJI2307) 93 74-118 [facility] CenterCalcium Ylxfa3085-51-80 04:19:00* Test Item Value Reference Range Interpretation Comments Calcium Level (test code = 92233-0) 8.9 8.4-10.2 [facility] CenterMagnesium Fwgbs4671-28-80 04:19:00* Test Item Value Reference Range Interpretation Comments Magnesium Level (test code = 84393-2) 1.7 1.3-2.1 [facility] CenterWhite Blood Ndghy5557-49-55 04:08:00* Test Item Value Reference Range Interpretation Comments White Blood Count (test code = 6690-2) 4.48 4.8-10.8 L [facility] CenterRed Blood Hugrx5833-14-40 04:08:00* Test Item Value Reference Range Interpretation Comments Red Blood Count (test code = 789-8) 3.62 4.3-5.7 L [facility] CenterHemoglobin2019-08-21 04:08:00* Test Item Value Reference Range Interpretation Comments Hemoglobin (test code = 86531-8) 12.2 14.0-18.0 L [facility] CenterHematocrit2019-08-21 04:08:00* Test Item Value Reference Range Interpretation Comments Hematocrit (test code = 4544-3) 34.8 38.2-49.6 L [facility] CenterMean Corpuscular Mvxdbp5818-50-52 04:08:00* Test Item Value Reference Range Interpretation Comments Mean Corpuscular Volume (test code = 787-2) 96.1 81-99 [facility] CenterMean Corpuscular Nojtcbluba8866-69-32 04:08:00* Test Item Value Reference Range Interpretation Comments Mean Corpuscular Hemoglobin (test code = 785-6) 33.7 28-32 H [facility] CenterMean Corpuscular Hemoglobin Concent 2019-03-05 04:08:00* Test Item Value Reference Range Interpretation Comments Mean Corpuscular Hemoglobin Concent (test code = 786-4) 35.1 31-35 H [facility] CenterRed Cell Distribution Wbuzy6948-69-27 04:08:00* Test Item Value Reference Range Interpretation Comments Red Cell Distribution Width (test code = 14921-4) 11.9 11.7 -14.4 [facility] CenterPlatelet Fnlmb0210-28-53 04:08:00* Test Item Value Reference Range Interpretation Comments Platelet Count (test code = 777-3) 207 140-360 [facility] CenterNeutrophils (%) (Auto)2019-03-05 04:08:00 * Test Item Value Reference Range Interpretation Comments Neutrophils (%) (Auto) (test code = 76044-1) 51.5 38.7-80.0 [facility] CenterLymphocytes (%) (Auto)2019-03-05 04:08:00 * Test Item Value Reference Range Interpretation Comments Lymphocytes (%) (Auto) (test code = 736-9) 17.4 18.0-39.1 L [facility] CenterMonocytes (%) (Auto)2019-03-05 04:08:00* Test Item Value Reference Range Interpretation Comments Monocytes (%) (Auto) (test code = 5905-5) 25.2 4.4-11.3 H [facility] CenterEosinophils (%) (Auto)2019-03-05 04:08:00 * Test Item Value Reference Range Interpretation Comments Eosinophils (%) (Auto) (test code = 713-8) 5.1 0.0-6.0 [facility] CenterBasophils (%) (Auto)2019-03-05 04:08:00* Test Item Value Reference Range Interpretation Comments Basophils (%) (Auto) (test code = 706-2) 0.4 0.0-1.0 [facility] CenterIM GRANULOCYTES %2019-03-05 04:08:00* Test Item Value Reference Range Interpretation Comments IM GRANULOCYTES % (test code = IM GRANULOCYTES %) 0.4 0.0- 1.0 [facility] CenterNeutrophils # (Auto)2019-03-05 04:08:00* Test Item Value Reference Range Interpretation Comments Neutrophils # (Auto) (test code = 751-8) 2.3 2.1-6.9 [facility] CenterLymphocytes # (Auto)2019-03-05 04:08:00* Test Item Value Reference Range Interpretation Comments Lymphocytes # (Auto) (test code = 13394-5) 0.8 1.0-3.2 L [facility] CenterMonocytes # (Auto)2019-03-05 04:08:00* Test Item Value Reference Range Interpretation Comments Monocytes # (Auto) (test code = 742-7) 1.1 0.2-0.8 H [facility] CenterEosinophils # (Auto)2019-03-05 04:08:00* Test Item Value Reference Range Interpretation Comments Eosinophils # (Auto) (test code = 711-2) 0.2 0.0-0.4 [facility] CenterBasophils # (Auto)2019-03-05 04:08:00* Test Item Value Reference Range Interpretation Comments Basophils # (Auto) (test code = 704-7) 0.0 0.0-0.1 [facility] CenterAbsolute Immature Granulocyte (auto 2019-03-05 04:08:00* Test Item Value Reference Range Interpretation Comments Absolute Immature Granulocyte (auto (nelda t code = Absolute Immature Granulocyte (auto) 0.02 0-0.1 [facility] CenterMODIFIED BA. HLCTXKQ0511-97-72 17:33:00 [facility] [address] [place] [address] Patient Name: DIPIKA PERDUE MR #: [id number] : 1955 Age/Sex: 63/M Req #: [id number] Adm Physician: SENIA LACY MD Ordered by: SENIA LACY MD Report #: [id number] Location: [facility] Room/Bed: [facility] Procedure: [id number] D X/MODIFIED BA. SWALLOW Exam Date: 03/04/19 Exam Time : 1230 REPORT STATUS: Signed Modified barium swallow, 03/04/2019. History: Dysphagia. Fluoro time : 3.2 min. Dose: 19.5 mGy (DONTRELL) Technique: Fluoroscopy was performed by radiation control technician. A radiologist was not present for exam. Fluoroscopic observati on and imaging of the oral cavity, oropharynx, and hypopharynx was performed i n the lateral projection during swallowing of liquids and solids, administered by speech pathology. See speech pathologist report for findings. Signed by: Jose Beltre on 03/04/2019 5:34 PM Dictated By: JOSE BELTRE MD Marlin ctronically Signed By: JOSE BELTRE MD on 03/04/191733 Transcribed By: STACEY Oneal on 03/04/191733 COPY TO: SENIA LACY MD Stool Lactoferrin (LAB)2019-03-04 13:48:00* Test Item Value Reference Range Interpretation Comments Stool Lactoferrin (LAB) (test code = 12504-8) POSITIVE NEGATIVE H Testing on stool aspirate specimens is outside cable assembler claims since specime n type not validated on this assay.[facility] CenterBlood Orjkbjn6952-25-09 18:25:00* Test Item Value Reference Range Interpretation Comments Blood Culture (test code = 68158611) NO GROWTH AFTER 5 DAYS, FINAL REPORT [facility] CenterFerritin2019-08-19 07:36:00* Test Item Value Reference Range Interpretation Comments Ferritin (test code = 2276-4) 648.04 21.81-274.66 H [facility] CenterIron Cwmju1777-49-78 07:29:00* Test Item Value Reference Range Interpretation Comments Iron Level (test code = 2498-4) 66 65-175 [facility] CenterTotal Iron Binding Lrezgqha9865-56-33 07:29:00* Test Item Value Reference Range Interpretation Comments Total Iron Binding Capacity (test code = 2500-7) 193 261-4 78 L [facility] CenterPercent Iron Ocufnanplb0976-88-81 07:29:00* Test Item Value Reference Range Interpretation Comments Percent Iron Saturation (test code = 2502-3) 34 15-50 [facility] CenterTransferrin2019-08-19 07:29:00* Test Item Value Reference Range Interpretation Comments Transferrin (test code = 3034-6) 138 174-364 L [facility] CenterVitamin B12 Akgrd9454-48-67 07:14:00* Test Item Value Reference Range Interpretation Comments Vitamin B12 Level (test code = 32575-4) 687 213-816 [facility] CenterFolate2019-08-19 07:14:00* Test Item Value Reference Range Interpretation Comments Folate (test code = 2284-8) 13.2 7.0-15.4 [facility] CenterTotal Sgmcphkye6240-28-50 06:52:00* Test Item Value Reference Range Interpretation Comments Total Bilirubin (test code = 1975-2) 1.4 0.2-1.2 H [facility] CenterAspartate Amino Transf (AST/SGOT) 2019-03-03 06:52:00* Test Item Value Reference Range Interpretation Comments Aspartate Amino Transf (AST/SGOT) (test code = Aspartate Amino Transf (AST/SGOT)) 39 5-34 H [facility] CenterAlanine Aminotransferase (ALT/SGPT) 2019-03-03 06:52:00* Test Item Value Reference Range Interpretation Comments Alanine Aminotransferase (ALT/SGPT) (test code = 1742-6) 36 0-55 [facility] CenterTotal Noxgzgj6723-70-02 06:52:00* Test Item Value Reference Range Interpretation Comments Total Protein (test code = 2885-2) 5.8 6.5-8.1 L [facility] CenterAlbumin2019-08-19 06:52:00* Test Item Value Reference Range Interpretation Comments Albumin (test code = 1751-7) 3.1 3.5-5.0 L [facility] CenterGlobulin2019-08-19 06:52:00* Test Item Value Reference Range Interpretation Comments Globulin (test code = 61815-0) 2.7 2.3-3.5 [facility] CenterAlbumin/Globulin Hisfd2876-96-95 06:52:00 * Test Item Value Reference Range Interpretation Comments Albumin/Globulin Ratio (test code = 1759-0) 1.1 0.8-2.0 [facility] CenterAlkaline Gdargpmovli9678-55-65 06:52:00* Test Item Value Reference Range Interpretation Comments Alkaline Phosphatase (test code = 6768-6) 43 40-150 [facility] CenterPercent Reticulocyte Bxetd1998-03-40 06:42:00* Test Item Value Reference Range Interpretation Comments Percent Reticulocyte Count (test code = 49817-8) 1.0 0.8-2 .2 [facility] CenterParathyroid Iigasda8544-68-00 23:25:00* Test Item Value Reference Range Interpretation Comments Parathyroid Hormone (test code = 2731-8) 17 15-65 [facility] CenterCalcium (Send out)2019-03-02 23:25:00* Test Item Value Reference Range Interpretation Comments Calcium (Send out) (test code = 89628-9) 8.0 8.6-10.2 L [facility] CenterParathyroid Hormone Interpretation 2019-03-02 23:25:00* Test Item Value Reference Range Interpretation Comments Parathyroid Hormone Interpretation (test code = Parathyroid Hormone Interpretation) Comment . Interpretation Intact PTH Calcium (pg/mL) (mg/dL)Normal 15 - 65 8.6 - 10.2Pr imary Hyperparathyroidism >65 >10.2Secondary Hyperparathyroidism >65 <10.2Non-Parathyroid Hypercalcemia <65 >10.2Hypoparathyroidism <15 < 8.6Non- Parathyroid Hypocalcemia 15 - 65 < 8.6Performed at: - [facility] [address] [id number] Director: Mack Cobb MD, Phone: [phone] at: - [facility] [id number] Director: Ruht Jones MD, Phone: [phone] University Medical CenterDirect Irvpmkiqh1020-87-07 08:29:00* Test Item Value Reference Range Interpretation Comments Direct Bilirubin (test code = 85635-2) 0.9 0.0-0.5 H [facility] CenterClostridium Difficile Toxin A & B 2019-02-28 10:19:00* Test Item Value Reference Range Interpretation Comments Clostridium Difficile Toxin A & B (test code = 357984630) NEGATIVE NEGATIVE Testing on stool aspirate specimens is outside cable assembler claims since specime n type not validated on this assay.[facility] Clumped Pxgxwljuy7411-37-65 08:56:00* Test Item Value Reference Range Interpretation Comments Clumped Platelets (test code = 7796-6) NONE NONE [facility] CenterLactic Acid Xnaxu5824-97-29 04:18:00* Test Item Value Reference Range Interpretation Comments Lactic Acid Level (test code = Lactic Acid Level) 7.3 4.5- 19.8 [facility] CenterUrine FJX8409-03-64 20:10:00* Test Item Value Reference Range Interpretation Comments Urine WBC (test code = 5821-4) 0-5 0-5 [facility] CenterUrine SNZ1718-77-30 20:10:00* Test Item Value Reference Range Interpretation Comments Urine RBC (test code = 54015-0) NONE 0-5 [facility] CenterUrine Iqlnbvsp0392-57-89 20:10:00* Test Item Value Reference Range Interpretation Comments Urine Bacteria (test code = 56520-8) NONE NONE [facility] CenterUrine Epithelial Gojjq9345-89-15 20:10:00 * Test Item Value Reference Range Interpretation Comments Urine Epithelial Cells (test code = 36314-2) FEW NONE [facility] CenterUrine Hyaline Bgddv0201-26-48 20:10:00* Test Item Value Reference Range Interpretation Comments Urine Hyaline Casts (test code = 70746-9) 2-5 0-1 H [facility] CenterUrine Coarse Granular Cxbhr7638-96-13 20:10:00* Test Item Value Reference Range Interpretation Comments Urine Coarse Granular Casts (test code = 99716-3) 1-5 >0 H [facility] CenterUrine Opiates Xebqxk3710-01-32 19:58:00* Test Item Value Reference Range Interpretation Comments Urine Opiates Screen (test code = 85019-4) NEGATIVE NEGATIVE ALL TESTS PERFORMED MANUALLY ON Floop TOX/SEE TESTBaylor University Medical CenterUrine Barbiturates Aefbec2163-76-32 19:58:00* Test Item Value Reference Range Interpretation Comments Urine Barbiturates Screen (test code = 433429759) NEGATIVE NEGA TIVE [facility] CenterUrine Phencyclidine Clyhad0548-44-00 19:58:00* Test Item Value Reference Range Interpretation Comments Urine Phencyclidine Screen (test code = 45109-7) NEGATIVE NEGAT MAURICIO [facility] CenterUrine Amphetamines Nfocfi2147-23-07 19:58:00* Test Item Value Reference Range Interpretation Comments Urine Amphetamines Screen (test code = 91414-8) NEGATIVE NEGATI VE [facility] CenterUrine Methamphetamines Tttieh6947-53-05 19:58:00* Test Item Value Reference Range Interpretation Comments Urine Methamphetamines Screen (test code = Urine Metha mphetamines Screen) NEGATIVE NEGATIVE [facility] CenterUrine Benzodiazepines Qdtevl7382-23-58 19:58:00* Test Item Value Reference Range Interpretation Comments Urine Benzodiazepines Screen (test code = 89363-6) NEGATIVE NEG ATIVE [facility] CenterUrine Cocaine Ugeyaa9442-96-70 19:58:00* Test Item Value Reference Range Interpretation Comments Urine Cocaine Screen (test code = 3398-5) NEGATIVE NEGATIVE [facility] CenterUrine Cannabinoids Cwqpzf8083-53-97 19:58:00* Test Item Value Reference Range Interpretation Comments Urine Cannabinoids Screen (test code = 77716-4) POSITIVE NEGATI VE H This test provides only a screen. Positive results should be repeated by a confi rmatory test.[facility] CenterUrine Methadone Screen 2019-02-26 19:58:00* Test Item Value Reference Range Interpretation Comments Urine Methadone Screen (test code = 04957-5) NEGATIVE NEGATIVE THESE RESULTS ARE FOR MEDICAL TREATMENT ONLYTHIS REPORT CONTAINS UNCONFIR MED SCREENING RESULTS*POSITIVE RESULTS WILL BE CONFIRMED BY REFERENCE LAB UPON R EQUEST CUT-OFFDRUG CLASS CONCENTRATION ng/mLAmphetamines 1000Methamphetamines 1000Cocaine Metabolite 300Opiate 300Phencyc lidine 25Cannabinoid 50Barbiturates 300Benzodiazepine 300Methadone 300[facility] CenterUrine Hcosq1063-48-91 19:56:00* Test Item Value Reference Range Interpretation Comments Urine Color (test code = 5778-6) YELLOW YELLOW [facility] CenterUrine Sglqjji5610-47-67 19:56:00* Test Item Value Reference Range Interpretation Comments Urine Clarity (test code = 65154-1) SL CLOUDY CLEAR H [facility] CenterUrine Specific Answxyb6253-72-14 19:56:00 * Test Item Value Reference Range Interpretation Comments Urine Specific [place] (test code = 5811-5) 1.015 1.010-1.02 5 [facility] CenterUrine uM2502-07-14 19:56:00* Test Item Value Reference Range Interpretation Comments Urine pH (test code = 21957-3) 6 5-7 [facility] CenterUrine Leukocyte Rrcubjri6341-95-78 19:56:00* Test Item Value Reference Range Interpretation Comments Urine Leukocyte Esterase (test code = 42227-3) NEGATIVE NEGATIV E [facility] CenterUrine Auwxxin7560-47-11 19:56:00* Test Item Value Reference Range Interpretation Comments Urine Nitrite (test code = 58582-8) NEGATIVE NEGATIVE [facility] CenterUrine Ekpjmfc5739-90-30 19:56:00* Test Item Value Reference Range Interpretation Comments Urine Protein (test code = 56906-8) TRACE NEGATIVE H [facility] CenterUrine Glucose (UA)2019-02-26 19:56:00* Test Item Value Reference Range Interpretation Comments Urine Glucose (UA) (test code = 87527-1) NEGATIVE NEGATIVE [facility] CenterUrine Adxftng6287-10-42 19:56:00* Test Item Value Reference Range Interpretation Comments Urine Ketones (test code = 41474-2) 1+ NEGATIVE H [facility] CenterUrine Zqtnqvsnghmz2359-19-46 19:56:00* Test Item Value Reference Range Interpretation Comments Urine Urobilinogen (test code = 11738-8) 0.2 0.2-1 [facility] CenterUrine Rjmtjxyrv0727-54-00 19:56:00* Test Item Value Reference Range Interpretation Comments Urine Bilirubin (test code = 1977-8) NEGATIVE NEGATIVE [facility] CenterUrine Rshsh6777-84-74 19:56:00* Test Item Value Reference Range Interpretation Comments Urine Blood (test code = 84477-9) 1+ NEGATIVE [facility] CenterCT ABDOMEN/PELVIS P6602-49-48 19:45:00 [place] [address] Patient Name: DIPIKA PERDUE MR #: [id number] : 1955 Age/Sex: 63/M Req #: [id number] Adm Physician: Ordered by: JOSE GAMA [employer] Report #: [id number] Location: ER Room/Bed: Procedure: [id number] CT/CT ABDOMEN/PELVIS W Exam Date: Exam Time: REPORT STATUS: Signed EXAM: CT Abdomen and Pelvis WITH contrast INDICATION: Abdominal pain, nausea and vomiting. Diarrhea. COMPARISON: 01/03/2019. TECHNIQUE: Abdomen and pelvis were scanned utilizing a multidetector helical scanner from the lung base to the pubic symp hysis after administration of IV contrast. Coronal and sagittal reformations w ere obtained. Routine protocol was performed. Scan was performed when during p ortal venous phase. IV CONTRAST: 150 mL of Omnipaque 300 ORAL CONTRAST: Water RADIATION DOSE: Total DLP: 268.47 mGy*cm Estimated effective dose: (DLP x 0.015 x size factor) mSv COMPLICATIONS: None FINDINGS: LINES and TUBES: None. LOWER THORAX: Small hiatal hernia with thickening of the distal esophagus. Stable 4 mm noncalcified nodule in the posterolateral left lung base on image 4 series 2. HEPATOBILIARY: The liver is diffuse hypodense compared to the spleen, consistent with diffuse hepatic diffuse hepatic steatosis. No focal hepatic lesions. No biliary ductal dilation. GALLBLADDER: No radio-opaque stones or sludge. No wall thickening. SPLEEN: No splenomegaly. PANCREAS: No focal masses or ductal dilatation. ADRENALS: No adrenal nodules KIDNEYS/URETERS: Kidneys enhance symmetrically. No hydronephrosis. No cystic or solid mass lesions. No stones. GI TRACT: No abnormal distention, wall thickening, or evidence of bowel obstruction. Appendix is normal. PELVIC ORGANS/BLADDER: Unremarkable. LYMPH NODES: No lymphadenopathy. VESSELS: Unremarkable. PERITONEUM / RETROPERITONEUM: No free air or fluid. BONES: Bilateral L5 pars defects with grade 1 anterolisthesis of L5 in rela tion to L4 and S1. SOFT TISSUES: Unremarkable. IMPRES ROSY: 1. No acute abdominal pelvic abnormality. 2. Small hiatal hernia. Signed by: Tamar Aquino.D. on 02/26/2019 7:52 PM Dictat ed By: HERNAN HERNDON MD, MD 51 Transcribed By: DG on 02/26/191951 COPY TO: ADELAIDE GAMA NP CHEST SINGLE (PORTABLE)2019-02-26 19:44:00 [place] [address] Patient Name: DIPIKA PERDUE MR #: [id number] : 1955 Age/Sex: 63/M Req #: [id number] Adm Physician: Ordered by: JOSE GAMA NP Report #: [id number] Location: ER Room/Bed: Procedure: [id number] DX/CHEST SINGLE (PORTABLE) Exam Date: Exam Time: REPORT STATUS: Signed EXAMINATION: CHEST SINGLE (PORTABLE) INDICATION: Altered mental status. Pain. Vom iting. COMPARISON: None FINDINGS: TUBES and LINES: None. LUNGS: Lungs are well inflated. Lungs are clear. There is no evidence of pneumonia or pulmonary edema. PLEURA: No pleural effusion or pneumothorax. HEART AND MEDIASTINUM: The cardiomediastinal silhouette is unremarkable. BONES AND SOFT TISSUES: No acute osseous lesion. Soft tissues are u nremarkable. UPPER ABDOMEN: No free air under the diaphragm. IMPRE SSION: No acute thoracic abnormality. Signed by: Dr. Tino muir M.D. on 02/26/2019 7:45 PM Dictated By: HERNAN HERNDON MD, MD Electr on Signed By: HERNAN HERNDON MD, MD on 02/26/191944 Transcribed By: GINNY VALDOVINOS on 02/26/191944 COPY TO: JOSE GAMA NP CT BRAIN WO 2019-02-26 19:27:00 [place] [address] Patient Name: DIPIKA PERDUE MR #: [id number] : 1955 Age/Sex: 63/M Req #: [id number] Adm Physician: Ordered by: JOSE GAMA [facility] Report #: [id number] Location: ER Room/Bed: Procedure: [id number] CT/CT BRAIN WO Exam Date: Exam Time: REPORT STATUS: Signed EXAMINATION: Head CT wi thout contrast. HISTORY:Altered mental status. COMPARISON:None. TECHNIQUE: Multidetector axial images were obtained from the foramen magnum to the vertex without contrast. The images were reconstructed using brain and bone algorithms. Thin section brain images were reformatted into coronal and s agittal planes. Dose modulation, iterative reconstruction, and/or weight based adjustment of the mA/kV was utilized to reduce the radiation dose to as low as reasonably achievable. Intravenous contrast: None IMAGE QUALITY: Suboptimal evaluation due to motion artifact particularly at the level of sku ll base and posterior fossa. FINDINGS: Skull/scalp: No lytic or blast ic. lesions. No surgical changes. Parenchyma: Nonspecific few, scattered supratentorial white matter hypodensity are likely related to small vessel isc hemic changes. No acute hemorrhage, mass or acute major vascular territorial i nfarct. Arteries: No density suggestive of thrombosis. Dural sinu ses: No abnormal density suggestive of thrombosis. Ventricles: Mild compe nsated dilatation due to volume loss. No acute hydrocephalus. Extra-axia l spaces: No abnormal density. Brain volume: Mild generalized cerebral v olume loss. Craniocervical junction: No mass, Chiari malformation, or basi lar invagination. Sella: No mass. Paranasal/mastoid sinuses: Mild mucosal thickening in right maxillary and anterior ethmoid sinuses. I MPRESSION: 1. Suboptimal evaluation due to motion artifacts, despite the li mitation no gross acute intracranial abnormality. 2. Mild supratentorial white matter microvascular ischemic changes. 3. Mild generalized cerebral v olume loss. Signed by: Dr. Laura Larry M.D. on 02/26/2019 7:30 PM Dictated By: LAURA LARRY MD 29 Transcribed By: DG on 02/26/191929 COPY TO: JOSE [facility] [employer] Creatine Kinase [id number] 18:56:00* Test Item Value Reference Range Interpretation Comments Creatine Kinase MB (test code = 60988-0) 3.80 0-5.0 [facility] CenterTroponin [id number] 18:56:00* Test Item Value Reference Range Interpretation Comments Troponin I (test code = WUG5797) < 0.001 0-0.300 [facility] CenterThyroid Stimulating Hormone (TSH) 2019-02-26 18:56:00* Test Item Value Reference Range Interpretation Comments Thyroid Stimulating Hormone (TSH) (test code = 51259-1) 1.170 0.350-4.940 [facility] CenterB-Type Natriuretic Ikkoxkb5686-87-19 18:37:00* Test Item Value Reference Range Interpretation Comments B-Type Natriuretic Peptide (test code = 12918-6) 129.2 0-100 H [facility] CenterCreatine Wzjfrv8231-42-59 18:29:00* Test Item Value Reference Range Interpretation Comments Creatine Kinase (test code = 2157-6) 163 30-200 [facility] CenterAcetaminophen Ruvze5763-08-55 18:26:00* Test Item Value Reference Range Interpretation Comments Acetaminophen Level (test code = 96848-9) < 3 10-30 L [facility] CenterEthyl Alcohol Qwjxy8395-55-29 18:26:00* Test Item Value Reference Range Interpretation Comments Ethyl Alcohol Level (test code = 5643-2) < 10.0 0.0-10.0 [facility]ic[facility]ates Vukxg8188-43-17 18:26:00* Test Item Value Reference Range Interpretation Comments Salicylates Level (test code = 4024-6) < 5.0 0-30 [facility] CenterProthrombin Usru1904-73-39 18:25:00* Test Item Value Reference Range Interpretation Comments Prothrombin Time (test code = 5902-2) 15.2 11.9-14.5 H [facility] CenterProthromb Time International Ratio 2019-02-26 18:25:00* Test Item Value Reference Range Interpretation Comments Prothromb Time International Ratio (test code = 6301-6) 1.14 Oral Anticoagulant Therapy INR Values:1. Low Intensity Therapy 1.5 - 2.02 . Moderate Intensity Therapy 2.0 - 3.03. High Intensity Therapy(1) 2.5 - 3. 54. High Intensity Therapy(2) 3.0 - 4.05. Panic Value INR > 5.0 [facility] CenterActivated Partial Thromboplast Time 2019-02-26 18:25:00* Test Item Value Reference Range Interpretation Comments Activated Partial Thromboplast Time (test code = 03792-6) 28.4 23.8-35.5 [facility] CenterUrine QYP5862-52-00 06:13:00* Test Item Value Reference Range Interpretation Comments Urine WBC (test code = 5821-4) 0-5 0-5 [facility] CenterUrine OQC9359-58-17 06:13:00* Test Item Value Reference Range Interpretation Comments Urine RBC (test code = 22486-5) NONE 0-5 [facility] CenterUrine Zajauhfp7496-75-38 06:13:00* Test Item Value Reference Range Interpretation Comments Urine Bacteria (test code = 52448-4) RARE NONE [facility] CenterUrine Epithelial Jhgav1587-29-46 06:13:00 * Test Item Value Reference Range Interpretation Comments Urine Epithelial Cells (test code = 01085-7) RARE NONE [facility] Centerodium Hjjwz8442-36-33 06:08:00* Test Item Value Reference Range Interpretation Comments Sodium Level (test code = 2951-2) 133 136-145 L [facility] CenterPotassium Azwuv3759-73-73 06:08:00* Test Item Value Reference Range Interpretation Comments Potassium Level (test code = 2823-3) 4.3 3.5-5.1 [facility] CenterChloride Epvik7048-82-52 06:08:00* Test Item Value Reference Range Interpretation Comments Chloride Level (test code = 2075-0) 103 98-107 [facility] CenterCarbon Dioxide Utfco5664-65-05 06:08:00* Test Item Value Reference Range Interpretation Comments Carbon Dioxide Level (test code = 2028-9) 22 22-29 [facility] CenterAnion Eqh0590-09-93 06:08:00* Test Item Value Reference Range Interpretation Comments Anion Gap (test code = 94603-2) 12.3 8-16 [facility] CenterBlood Urea Yypyyopn6863-14-43 06:08:00* Test Item Value Reference Range Interpretation Comments Blood Urea Nitrogen (test code = 3094-0) 5 7-26 L [facility] CenterCreatinine2019-06-21 06:08:00* Test Item Value Reference Range Interpretation Comments Creatinine (test code = 2160-0) 0.57 0.72-1.25 L [facility] CenterBUN/Creatinine Bifbs6494-33-56 06:08:00* Test Item Value Reference Range Interpretation Comments BUN/Creatinine Ratio (test code = 3097-3) 9 6-25 [facility] CenterEstimat Glomerular Filtration Rate 2019-01-03 06:08:00* Test Item Value Reference Range Interpretation Comments Estimat Glomerular Filtration Rate (test code = 751303415) > 60 >60 Ranges were taken from the National Kidney Disease Education Program and the [facility] literature.Reference ranges:60 or greater: Qjwskg53-97 ( for 3 consecutive months): Chronic kidney disease 15 or less: Kidney failureCHI [facility] – TempleGlucose Alfan2280-69-28 06:08:00* Test Item Value Reference Range Interpretation Comments Glucose Level (test code = LCZ0140) 90 74-118 [facility] CenterCalcium Znibi5326-75-07 06:08:00* Test Item Value Reference Range Interpretation Comments Calcium Level (test code = 84998-4) 7.3 8.4-10.2 L [facility] CenterLactic Acid Bavit1103-44-08 06:02:00* Test Item Value Reference Range Interpretation Comments Lactic Acid Level (test code = Lactic Acid Level) 7.4 4.5- 19.8 [facility] CenterUrine Kddsz7706-30-88 05:59:00* Test Item Value Reference Range Interpretation Comments Urine Color (test code = 5778-6) YELLOW YELLOW [facility] CenterUrine Waqsswm5506-04-78 05:59:00* Test Item Value Reference Range Interpretation Comments Urine Clarity (test code = 47551-3) SL CLOUDY CLEAR H [facility] CenterUrine Specific Obavnki4470-96-29 05:59:00 * Test Item Value Reference Range Interpretation Comments Urine Specific [place] (test code = 5811-5) 1.010 1.010-1.02 5 [facility] CenterUrine yE6160-46-79 05:59:00* Test Item Value Reference Range Interpretation Comments Urine pH (test code = 97813-2) 8 5-7 [facility] CenterUrine Leukocyte Rnmsmyao5895-51-20 05:59:00* Test Item Value Reference Range Interpretation Comments Urine Leukocyte Esterase (test code = 88695-6) NEGATIVE NEGATIV E [facility] CenterUrine Ftbfhsi8742-96-50 05:59:00* Test Item Value Reference Range Interpretation Comments Urine Nitrite (test code = 23542-5) NEGATIVE NEGATIVE [facility] CenterUrine Vaovaao2254-06-45 05:59:00* Test Item Value Reference Range Interpretation Comments Urine Protein (test code = 10576-3) NEGATIVE NEGATIVE [facility] CenterUrine Glucose (UA)2019-01-03 05:59:00* Test Item Value Reference Range Interpretation Comments Urine Glucose (UA) (test code = 85065-7) NEGATIVE NEGATIVE [facility] CenterUrine Xojugfa2369-64-04 05:59:00* Test Item Value Reference Range Interpretation Comments Urine Ketones (test code = 14201-8) 1+ NEGATIVE H [facility] CenterUrine Edyupkfkhwcz8946-38-98 05:59:00* Test Item Value Reference Range Interpretation Comments Urine Urobilinogen (test code = 32125-3) 1 0.2-1 [facility] CenterUrine Mxamvdzne7145-20-39 05:59:00* Test Item Value Reference Range Interpretation Comments Urine Bilirubin (test code = 1977-8) NEGATIVE NEGATIVE [facility] CenterUrine Gsnwm6252-15-08 05:59:00* Test Item Value Reference Range Interpretation Comments Urine Blood (test code = 04259-9) NEGATIVE NEGATIVE [facility] CenterCT ABDOMEN/PELVIS V1185-77-29 02:30:00 [place] [address] Patient Name: DIPIKA PERDUE MR #: [id number] : 1955 Age/Sex: 63/M Req #: [id number] Adm Physician: Ordered by: CHRIS CANTOR MD Report #: [id number] Location: ER Room/Bed: Procedure: [id number] CT/CT ABDOMEN/PELVIS W Exam Date: 01/03/19 Exam Time : 219 REPORT STATUS: Signed EXA M: CT Abdomen and Pelvis WITH contrast INDICATION: vomiting 2018 620 219 COMPARISON: None. TECHNIQUE: Abdomen and pelvis were scanned u tilizing a multidetector helical scanner from the lung base to the pubic symph ysis after administration of IV contrast. Coronal and sagittal reformations we re obtained. Dose modulation, iterative reconstruction, and/or weight based ad justment of the mA/kV was utilized to reduce the radiation dose to as low as r easonably achievable. Routine protocol was performed. Scan was [...] 4 mm left lower lobe nodule. HEPATOBILIARY: Hepa tic steatosis. No focal hepatic lesions. Subcentimeter segment 4 calcified gr anuloma. No biliary ductal dilation. GALLBLADDER: No radio-opaque stones o r sludge. No wall thickening. SPLEEN: No splenomegaly. PANCREAS: No focal masses or ductal dilatation. ADRENALS: No adrenal nodules KIDNEYS/URETERS: Kidneys enhance symmetrically. No hydronephrosis. No cystic or solid mass lesions. No stones. GI TRACT: No abnormal distention or evid ence of bowel obstruction. Mild rectosigmoid wall thickening. There are few di verticula within the colon without evidence of diverticulitis. Appendix is no t visualized. Small hiatal hernia. PELVIC ORGANS/BLADDER: Prominent prost ate gland. Bladder is under distended, demonstrating wall thickening. LYM PH NODES: No lymphadenopathy. VESSELS: Unremarkable. PERITONEUM / RETR OPERITONEUM: No free air or fluid. BONES: Bilateral L5 pars defects with gr micah 1 anterolisthesis of L5 in relation to L4 and S1. SOFT TISSUES: Unrem arkable. IMPRESSION: 1. Mild rectosigmoid wall thickening, could be due to underdistention or infectious/inflammatory colitis in the appr opriate clinical context. 2. Otherwise, no acute inflammatory process in the abdomen/pelvis. 3. 4 mm left lower lobe lung nodule. Without risk factors, no follow-up is necessary. With risk factors, follow-up with low-dose chest CT in one year is optional. 4. Hepatic steatosis. 5. Small hiatal hernia. Signed by: Dr. Tom Laguna MD on 01/03/2019 3:08 AM Dictated By: TOM LAGUNA MD 7 Me[place]ia scribed By: DG on 01/03/19307 COPY TO: CHRIS CANTOR MD Isnvcz5204-60-28 00:52:00* Test Item Value Reference Range Interpretation Comments Lipase (test code = 3040-3) [facility] CenterLipase2019-06-21 00:52:00* Test Item Value Reference Range Interpretation Comments Lipase (test code = 3040-3) [facility] CenterMagnesium Wnlwc2697-34-79 00:47:00* Test Item Value Reference Range Interpretation Comments Magnesium Level (test code = 79873-4) 1.9 1.3-2.1 [facility] CenterTotal Ugblahdec5872-12-70 00:47:00* Test Item Value Reference Range Interpretation Comments Total Bilirubin (test code = 1975-2) 1.9 0.2-1.2 H [facility] CenterAspartate Amino Transf (AST/SGOT) 2019-01-03 00:47:00* Test Item Value Reference Range Interpretation Comments Aspartate Amino Transf (AST/SGOT) (test code = Aspartate Amino Transf (AST/SGOT)) 49 5-34 H [facility] CenterAlanine Aminotransferase (ALT/SGPT) 2019-01-03 00:47:00* Test Item Value Reference Range Interpretation Comments Alanine Aminotransferase (ALT/SGPT) (test code = 1742-6) 34 0-55 [facility] CenterTotal Fthidsx3247-31-33 00:47:00* Test Item Value Reference Range Interpretation Comments Total Protein (test code = 2885-2) 7.8 6.5-8.1 [facility] CenterAlbumin2019-06-21 00:47:00* Test Item Value Reference Range Interpretation Comments Albumin (test code = 1751-7) 4.3 3.5-5.0 [facility] CenterGlobulin2019-06-21 00:47:00* Test Item Value Reference Range Interpretation Comments Globulin (test code = 12730-8) 3.5 2.3-3.5 [facility] CenterAlbumin/Globulin Wnueg9825-90-29 00:47:00 * Test Item Value Reference Range Interpretation Comments Albumin/Globulin Ratio (test code = 1759-0) 1.2 0.8-2.0 [facility] CenterAlkaline Ekwofuupqfg2812-03-27 00:47:00* Test Item Value Reference Range Interpretation Comments Alkaline Phosphatase (test code = 6768-6) 66 40-150 [facility]2019-06-21 00:46:00* Test Item Value Reference Range Interpretation Comments Ammonia (test code = 76137-6) 77 31-123 [facility] CenterEthyl Alcohol Kmjgc7979-17-82 00:46:00* Test Item Value Reference Range Interpretation Comments Ethyl Alcohol Level (test code = 5643-2) < 10.0 0.0-10.0 [facility]2019-06-21 00:46:00* Test Item Value Reference Range Interpretation Comments Ammonia (test code = 83163-6) 77 31-123 [facility] CenterProthrombin Vyuy5212-41-57 00:45:00* Test Item Value Reference Range Interpretation Comments Prothrombin Time (test code = 5902-2) 14.5 11.9-14.5 [facility] CenterProthromb Time International Ratio 2019-01-03 00:45:00* Test Item Value Reference Range Interpretation Comments Prothromb Time International Ratio (test code = 6301-6) 1.08 Oral Anticoagulant Therapy INR Values:1. Low Intensity Therapy 1.5 - 2.02 . Moderate Intensity Therapy 2.0 - 3.03. High Intensity Therapy(1) 2.5 - 3. 54. High Intensity Therapy(2) 3.0 - 4.05. Panic Value INR > 5.0 [facility] CenterActivated Partial Thromboplast Time 2019-01-03 00:45:00* Test Item Value Reference Range Interpretation Comments Activated Partial Thromboplast Time (test code = 43775-6) 26.8 23.8-35.5 [facility] CenterWhite Blood Dbrdz8405-24-93 00:35:00* Test Item Value Reference Range Interpretation Comments White Blood Count (test code = 6690-2) 6.44 4.8-10.8 [facility] CenterRed Blood Gxhis6702-85-43 00:35:00* Test Item Value Reference Range Interpretation Comments Red Blood Count (test code = 789-8) 4.17 4.3-5.7 L [facility] CenterHemoglobin2019-06-21 00:35:00* Test Item Value Reference Range Interpretation Comments Hemoglobin (test code = 24708-4) 14.0 14.0-18.0 [facility] CenterHematocrit2019-06-21 00:35:00* Test Item Value Reference Range Interpretation Comments Hematocrit (test code = 4544-3) 39.5 38.2-49.6 [facility] CenterMean Corpuscular Qkytex4980-42-07 00:35:00* Test Item Value Reference Range Interpretation Comments Mean Corpuscular Volume (test code = 787-2) 94.7 81-99 [facility] CenterMean Corpuscular Salccvlcwm7894-79-17 00:35:00* Test Item Value Reference Range Interpretation Comments Mean Corpuscular Hemoglobin (test code = 785-6) 33.6 28-32 H [facility] CenterMean Corpuscular Hemoglobin Concent 2019-01-03 00:35:00* Test Item Value Reference Range Interpretation Comments Mean Corpuscular Hemoglobin Concent (test code = 786-4) 35.4 31-35 H [facility] CenterRed Cell Distribution Ihbol1094-40-57 00:35:00* Test Item Value Reference Range Interpretation Comments Red Cell Distribution Width (test code = 91486-2) 12.1 11.7 -14.4 [facility] CenterPlatelet Hxhxi2439-25-30 00:35:00* Test Item Value Reference Range Interpretation Comments Platelet Count (test code = 777-3) 158 140-360 [facility] CenterNeutrophils (%) (Auto)2019-01-03 00:35:00 * Test Item Value Reference Range Interpretation Comments Neutrophils (%) (Auto) (test code = 49154-8) 62.7 38.7-80.0 [facility] CenterLymphocytes (%) (Auto)2019-01-03 00:35:00 * Test Item Value Reference Range Interpretation Comments Lymphocytes (%) (Auto) (test code = 736-9) 15.7 18.0-39.1 L [facility] CenterMonocytes (%) (Auto)2019-01-03 00:35:00* Test Item Value Reference Range Interpretation Comments Monocytes (%) (Auto) (test code = 5905-5) 18.9 4.4-11.3 H [facility] CenterEosinophils (%) (Auto)2019-01-03 00:35:00 * Test Item Value Reference Range Interpretation Comments Eosinophils (%) (Auto) (test code = 713-8) 1.9 0.0-6.0 [facility] CenterBasophils (%) (Auto)2019-01-03 00:35:00* Test Item Value Reference Range Interpretation Comments Basophils (%) (Auto) (test code = 706-2) 0.2 0.0-1.0 [facility] CenterIM GRANULOCYTES %2019-01-03 00:35:00* Test Item Value Reference Range Interpretation Comments IM GRANULOCYTES % (test code = IM GRANULOCYTES %) 0.6 0.0- 1.0 [facility] CenterNeutrophils # (Auto)2019-01-03 00:35:00* Test Item Value Reference Range Interpretation Comments Neutrophils # (Auto) (test code = 751-8) 4.0 2.1-6.9 [facility] CenterLymphocytes # (Auto)2019-01-03 00:35:00* Test Item Value Reference Range Interpretation Comments Lymphocytes # (Auto) (test code = 88099-7) 1.0 1.0-3.2 [facility] CenterMonocytes # (Auto)2019-01-03 00:35:00* Test Item Value Reference Range Interpretation Comments Monocytes # (Auto) (test code = 742-7) 1.2 0.2-0.8 H [facility] CenterEosinophils # (Auto)2019-01-03 00:35:00* Test Item Value Reference Range Interpretation Comments Eosinophils # (Auto) (test code = 711-2) 0.1 0.0-0.4 [facility] CenterBasophils # (Auto)2019-01-03 00:35:00* Test Item Value Reference Range Interpretation Comments Basophils # (Auto) (test code = 704-7) 0.0 0.0-0.1 [facility] CenterAbsolute Immature Granulocyte (auto 2019-01-03 00:35:00* Test Item Value Reference Range Interpretation Comments Absolute Immature Granulocyte (auto (nelda t code = Absolute Immature Granulocyte (auto) 0.04 0-0.1 [facility]
[2020-02-28] MEDS ORDERED: IOPAMIDOL 370 MG/ML 200 ML INFUS..BTL INJ ONE (21:24)
[2020-02-28] MEDS ORDERED: SODIUM CHLORIDE 0.9% 50ML 50 ML ONE (21:24)
--- NOTE | 2020-02-28 21:25 | NUR ---
Unable to obtain UA at this time. Patient does not want catheter.
[2020-02-28 22:22] LABS: BILIRUBIN,URINE NEGATIVE (NEGATIVE); CLARITY,URINE HAZY (CLEAR); COLOR,URINE YELLOW (YELLOW); KETONES,URINE TRACE (NEGATIVE); LEUKOCYTE ESTERASE ,URINE NEGATIVE (NEGATIVE); NITRITE,URINE NEGATIVE (NEGATIVE); PROTEIN,URINE DIPSTICK TRACE (NEGATIVE); URINE UROBILINOGEN 0.2 mg/dL (0.2 - 1)
--- NOTE | 2020-02-28 22:24 | Diagnostic Imaging Report ---
EXAM: CT Abdomen and Pelvis WITH contrast INDICATION: ^RLQ pain ^[id number] ^[id number] COMPARISON: CT abdomen/pelvis dated 02/26/2019 TECHNIQUE: Abdomen and pelvis were scanned utilizing a multidetector helical scanner from the lung base to the pubic symphysis after administration of IV contrast. Coronal and sagittal reformations were obtained. Dose modulation, iterative reconstruction, and/or weight based adjustment of the mA/kV was utilized to reduce the radiation dose to as low as reasonably achievable. Routine protocol was performed. Scan was performed when during portal venous phase. IV CONTRAST: 100 mL of Omnipaque 300 ORAL CONTRAST: None COMPLICATIONS: None RADIATION DOSE: Total DLP: 157.5 mGy*cm Estimated effective dose: (DLP x 0.015 x size factor) mSv CTDIvol has been reviewed. It is below the limits set by the Radiation Protocol Committee (RPC). FINDINGS: LINES and TUBES: None. LOWER THORAX: Unremarkable HEPATOBILIARY: Hepatic steatosis. No focal hepatic lesions. No biliary ductal dilation. GALLBLADDER: No radio-opaque stones or sludge. No wall thickening. SPLEEN: No splenomegaly. PANCREAS: No focal masses or ductal dilatation. ADRENALS: No adrenal nodules KIDNEYS/URETERS: Kidneys enhance symmetrically. No hydronephrosis. No cystic or solid mass lesions. No stones. GI TRACT: No abnormal distention, wall thickening, or evidence of bowel obstruction. There are few scattered diverticula within the colon without evidence of diverticulitis. Appendix is normal. Small hiatal hernia. PELVIC ORGANS/BLADDER: Prominent prostate. Mild bladder wall thickening. LYMPH NODES: No lymphadenopathy. VESSELS: There is mild atherosclerotic disease in the aorta and major arterial branches. PERITONEUM / RETROPERITONEUM: No free air or fluid. BONES: Again seen bilateral L5 pars defects with grade 1 L5-S1 spondylolisthesis. T11 vertebral body compression deformity, new since prior CT. SOFT TISSUES: Unremarkable. IMPRESSION: 1. No acute infiltrate process in the abdomen/pelvis. 2. T11 vertebral body superior endplate compression deformity which was not seen on prior CT dated 02/26/2019. 3. Hepatic steatosis. 4. Small hiatal hernia. 5. Prominent prostate with mild bladder wall thickening, which could be due to chronic outflow obstruction. Signed by: Dr. Tom Villanueva MD on 02/28/2020 10:20 PM
[2020-02-28 22:25] LABS: BACTERIA,URINE FEW /HPF; EPITHELIAL CELLS,URINE FEW /LPF; RBC,URINE 0-5 /HPF (0-5); WBC,URINE (MAN) 0-5 /HPF (0-5)
[2020-02-28] MEDS ORDERED: ZOFRAN4 MG PO (23:02)
[2020-02-28 23:24] LABS: ANION GAP 15.4 mmol/L (8-16); BLOOD UREA NITROGEN < 5 mg/dL (7-26); CALCIUM 8.3 mg/dL (8.4-10.2); CARBON DIOXIDE 30 mmol/L (22-29); CHLORIDE 95 mmol/L (98-107); CREATININE, SERUM 0.62 mg/dL (0.72-1.25); EST GLOMERULAR FILTRATION RATE > 60 ML/MIN (60-); GLUCOSE 111 mg/dL (74-118); POTASSIUM 3.4 mmol/L (3.5-5.1); SODIUM 137 mmol/L (136-145)
[2020-02-28 23:31] LABS: BUN/CREATININE RATIO 8 (6-25)
[2020-02-28 23:36] VITALS: BP 143/98
== END 2020-02-28 23:50 | disposition home or self-care (01) ==
LOC: ER 20:00
DX: E86.0 Dehydration (principal); R11.2 Nausea with vomiting, unspecified; R10.31 Right lower quadrant pain; G80.9 Cerebral palsy, unspecified
CPT/HCPCS: 36415; 74177; 80048; 80053; 80320; 81001; 82550; 83690; 84484; 85025; 93005; 99284; J2405; J7121; Q9967

== ENCOUNTER 2020-10-28 18:50 | Emergency (ER) | payer OTHER ==
[~2020-10-28] VITALS: Ht 167.6 cm; Wt 54.4 kg
[~2020-10-28 18:50] MED LIST changes: +ZOFRAN4 MG PO
[2020-10-28] MEDS ORDERED: LACTATED RINGER'S 1,000 ML INJ ONE (19:15)
[2020-10-28] MEDS ORDERED: ONDANSETRON HCL INJ 2MG/ML 2ML 2 MG/ML VIAL IV STA (19:21)
[2020-10-28 19:25] LABS: BASOPHILS % 0.3 % (0.0-1.0); EOSINOPHILS % 0.1 % (0.0-6.0); HEMATOCRIT 41.5 % (38.2-49.6); HEMOGLOBIN 15.2 g/dL (14.0-18.0); LYMPHOCYTES # (AUTO) 0.6 (1.0-3.2); LYMPHOCYTES % 6.3 % (18.0-39.1); MEAN CORPUSCULAR HEMOGLOBIN 34.4 pg (28-32); MEAN CORPUSCULAR HGB CONC 36.6 g/dL (31-35); MEAN CORPUSCULAR VOLUME 93.9 fL (81-99); MONOCYTES # (AUTO) 0.5 (0.2-0.8); MONOCYTES % 5.4 % (4.4-11.3); NEUTROPHILS # (AUTO) 8.2 (2.1-6.9); NEUTROPHILS % 87.6 % (38.7-80.0); PLATELET COUNT 215 x10e3/uL (140-360); RED BLOOD COUNT 4.42 x10e6/uL (4.3-5.7); RED CELL DISTRIBUTION WIDTH 11.4 % (11.7-14.4)
[2020-10-28] MEDS ORDERED: LACTATED RINGER'S 1,000 ML ONE (19:39)
[2020-10-28 19:45] LABS: ALANINE AMINOTRANSFERASE 33 IU/L (0-55); ALBUMIN 4.4 g/dL (3.5-5.0); ALBUMIN/GLOBULIN RATIO 1.2 (0.8-2.0); ALKALINE PHOSPHATASE 78 IU/L (40-150); ANION GAP 24.3 mmol/L (8-16); BLOOD UREA NITROGEN < 5 mg/dL (7-26); CALCIUM 9.4 mg/dL (8.4-10.2); CARBON DIOXIDE 27 mmol/L (22-29); CHLORIDE 90 mmol/L (98-107); CREATININE, SERUM 0.68 mg/dL (0.72-1.25); EST GLOMERULAR FILTRATION RATE > 60 ML/MIN (60-); GLUCOSE 116 mg/dL (74-118); POTASSIUM 3.3 mmol/L (3.5-5.1); SODIUM 138 mmol/L (136-145)
[2020-10-28 19:47] LABS: BUN/CREATININE RATIO 7 (6-25)
[2020-10-28 19:51] LABS: LIPASE 16 U/L (8-78)
[2020-10-28] MEDS ORDERED: D5NS/KCL 20MEQ 1,000 ML IV STA ×2 (22:00→23:00)
[2020-10-28] MEDS ORDERED: THIAMINE HCL INJ 100 MG/ML 2ML VIAL IV ONE (22:00)
[2020-10-28] MEDS ORDERED: HALOPERIDOL LACTATE 5 MG/ML VIAL IV ONE (22:15)
[2020-10-29 01:09] LABS: ANION GAP 14.5 mmol/L (8-16); BLOOD UREA NITROGEN < 5 mg/dL (7-26); CALCIUM 8.4 mg/dL (8.4-10.2); CARBON DIOXIDE 30 mmol/L (22-29); CHLORIDE 95 mmol/L (98-107); CREATININE, SERUM 0.65 mg/dL (0.72-1.25); EST GLOMERULAR FILTRATION RATE > 60 ML/MIN (60-); GLUCOSE 186 mg/dL (74-118); POTASSIUM 3.5 mmol/L (3.5-5.1); SODIUM 136 mmol/L (136-145)
[2020-10-29 01:12] LABS: BUN/CREATININE RATIO 8 (6-25)
[2020-10-29 01:18] LABS: AMPHETAMINES SCREEN,URINE NEGATIVE (NEGATIVE); BENZODIAZEPINES SCREEN,URINE NEGATIVE (NEGATIVE); CLARITY,URINE CLEAR (CLEAR); COLOR,URINE YELLOW (YELLOW); KETONES,URINE 3+ (NEGATIVE); LEUKOCYTE ESTERASE ,URINE NEGATIVE (NEGATIVE); NITRITE,URINE NEGATIVE (NEGATIVE); PHENCYCLIDINE SCREEN,URINE NEGATIVE (NEGATIVE); PROTEIN,URINE DIPSTICK TRACE (NEGATIVE); URINE UROBILINOGEN 0.2 mg/dL (0.2 - 1)
[2020-10-29] MEDS ORDERED: ONDANSETRON ODT4 MG PO (01:20)
[2020-10-29 01:28] LABS: BACTERIA,URINE FEW /HPF; EPITHELIAL CELLS,URINE FEW /LPF; MUCUS,URINE RARE (RARE); RBC,URINE 0-5 /HPF (0-5); WBC,URINE (MAN) 0-5 /HPF (0-5)
[2020-10-29 04:51] VITALS: BP 142/95
== END 2020-10-29 04:55 | disposition home or self-care (01) ==
LOC: ER 19:11
DX: R11.2 Nausea with vomiting, unspecified (principal); R19.7 Diarrhea, unspecified; E86.0 Dehydration; F10.10 Alcohol abuse, uncomplicated; R05 Cough; G80.9 Cerebral palsy, unspecified; Z86.12 Personal history of poliomyelitis
CPT/HCPCS: 36415; 71045; 80048; 80053; 80307; 80320; 81001; 83690; 85025; 93005; 99284; J1630; J2405; J3411; J7121

== ENCOUNTER 2024-02-25 22:57 | Emergency (ER) | payer OTHER ==
[~2024-02-25] VITALS: Ht 167.6 cm; Wt 54.4 kg
[~2024-02-25 22:57] MED LIST changes: +ONDANSETRON ODT4 MG PO
[2024-02-25 23:01] VITALS: TEMP 98.4
[2024-02-25 23:25] LABS: BASOPHILS % 0.5 % (0.0-1.0); EOSINOPHILS # (AUTO) 0.2 (0.0-0.4); HEMATOCRIT 39.5 % (38.2-49.6); HEMOGLOBIN 13.5 g/dL (14.0-18.0); LYMPHOCYTES # (AUTO) 1.2 (1.0-3.2); LYMPHOCYTES % 32.1 % (18.0-39.1); MEAN CORPUSCULAR HGB CONC 34.2 g/dL (31-35); MEAN CORPUSCULAR VOLUME 99.5 fL (81-99); MONOCYTES # (AUTO) 0.7 (0.2-0.8); MONOCYTES % 18.4 % (4.4-11.3); NEUTROPHILS # (AUTO) 1.7 (2.1-6.9); NEUTROPHILS % 43.7 % (38.7-80.0); PLATELET COUNT 196 x10e3/uL (140-360); RED BLOOD COUNT 3.97 x10e6/uL (4.3-5.7); RED CELL DISTRIBUTION WIDTH 11.4 % (11.7-14.4)
[2024-02-25 23:30] LABS: ALANINE AMINOTRANSFERASE 32 IU/L (0-55); ALBUMIN 4.7 g/dL (3.5-5.0); ALBUMIN/GLOBULIN RATIO 1.3 (0.8-2.0); ALKALINE PHOSPHATASE 80 IU/L (40-150); ANION GAP 15.6 mmol/L (8-16); BILIRUBIN,TOTAL 1.3 mg/dL (0.2-1.2); BLOOD UREA NITROGEN < 5 mg/dL (7-26); CALCIUM 10.2 mg/dL (8.4-10.2); CARBON DIOXIDE 26 mmol/L (22-29); CHLORIDE 97 mmol/L (98-107); CREATINE KINASE 136 IU/L (30-200); CREATININE, SERUM 0.62 mg/dL (0.72-1.25); EST GLOMERULAR FILTRATION RATE 105 ML/MIN (>=60); GLUCOSE 104 mg/dL (74-118); POTASSIUM 3.6 mmol/L (3.5-5.1); SODIUM 135 mmol/L (136-145); TOTAL PROTEIN 8.3 g/dL (6.5-8.1)
[2024-02-25 23:32] LABS: BUN/CREATININE RATIO 8 (6-25)
[2024-02-25 23:37] LABS: TROPONIN I 0.006 ng/mL (0-0.300)
[2024-02-26] MEDS: ASPIRIN 325 MG TAB PO STA (00:18)
[2024-02-26 00:19] VITALS: PULSE 93; RESP 18; O2SAT 98
[2024-02-26] MEDS ORDERED: IOPAMIDOL 370 MG/ML 100 ML INFUS..BTL INJ ONE (05:59)
== END 2024-02-26 00:45 | disposition home or self-care (01) ==
LOC: ER 23:12
DX: R53.1 Weakness (principal); F10.10 Alcohol abuse, uncomplicated; G80.9 Cerebral palsy, unspecified; Z11.52 Encounter for screening for COVID-19; Z86.12 Personal history of poliomyelitis; R94.31 Abnormal electrocardiogram [ECG] [EKG]
CPT/HCPCS: 36415; 70450; 70496; 70498; 71045; 80053; 80320; 82550; 83690; 83880; 84484; 85025; 93005; 99284; Q9967; U0002

== ENCOUNTER 2024-12-31 17:42 | Emergency (ER) | payer OTHER ==
[~2024-12-31] VITALS: Ht 167.6 cm; Wt 54.4 kg
[2024-12-31 18:42] VITALS: TEMP 98.5
[2024-12-31 19:03] LABS: BASOPHILS % 0.3 % (0.0-1.0); EOSINOPHILS % 0.4 % (0.0-6.0); HEMATOCRIT 38.8 % (38.2-49.6); LYMPHOCYTES % 13.9 % (18.0-39.1); MEAN CORPUSCULAR HGB CONC 36.1 g/dL (31-35); MEAN CORPUSCULAR VOLUME 94.2 fL (81-99); MONOCYTES # (AUTO) 1.8 (0.2-0.8); MONOCYTES % 24.5 % (4.4-11.3); NEUTROPHILS # (AUTO) 4.4 (2.1-6.9); NEUTROPHILS % 60.4 % (38.7-80.0); PLATELET COUNT 285 x10e3/uL (140-360); RED BLOOD COUNT 4.12 x10e6/uL (4.3-5.7); RED CELL DISTRIBUTION WIDTH 11.3 % (11.7-14.4); WHITE BLOOD COUNT 7.32 x10e3/uL (4.8-10.8)
[2024-12-31 19:17] LABS: ALBUMIN 3.4 g/dL (3.5-5.0); ALBUMIN/GLOBULIN RATIO 0.8 (0.8-2.0); ANION GAP 18.1 mmol/L (8-16); CALCIUM 9.4 mg/dL (8.4-10.2); CREATININE, SERUM 0.58 mg/dL (0.72-1.25); TOTAL PROTEIN 7.5 g/dL (6.5-8.1)
[2024-12-31 19:24] LABS: POTASSIUM 3.1 mmol/L (3.5-5.1)
[2024-12-31] MEDS: SODIUM CHLORIDE 0.9% 1000ML 1,000 ML IV ONE (19:28)
[2024-12-31] MEDS: KETOROLAC TROMETHAMINE 30 MG/ML VIAL IV STA (19:53)
[2024-12-31 22:10] VITALS: PULSE 87; RESP 18
[2024-12-31 22:38] VITALS: BP 133/77; PULSE 75; RESP 18; TEMP 97.8; O2SAT 98
== END 2024-12-31 22:39 | disposition home or self-care (01) ==
LOC: ER 19:06
DX: R53.1 Weakness (principal); E86.0 Dehydration; M25.511 Pain in right shoulder; G80.9 Cerebral palsy, unspecified; Z86.12 Personal history of poliomyelitis
CPT/HCPCS: 36415; 73030; 80053; 84484; 85025; 93005; 99283; J1885; J7030